=== PATIENT | male | born 1945 | race Caucasian/White ===

== ENCOUNTER 2016-09-18 09:44 | Outpatient (RCR) | payer OTHER ==
[~2016-09-18 09:44] MED LIST: FINA1TAB10 PO; FLUO20CA42 PO; TRAZ150T42 PO; [UNRECOGNIZED DRUG - CODE] PO
== END 2016-09-25 09:53 | disposition home or self-care (01) ==
PROVIDERS: ATTEND Nurse Practitioner Adult Health
DX: M54.5 Low back pain (principal)

== ENCOUNTER 2019-09-14 12:02 | Emergency (ER) | payer OTHER ==
[~2019-09-14] VITALS: Ht 165 cm; Wt 71.0 kg
[2019-09-14 12:26] LABS: BASOPHILS % (AUTO) 0 % (0-10); EOSINOPHILS # (AUTO) 0.2 10^3/uL (0.0-0.3); EOSINOPHILS % (AUTO) 4 % (0-10); HEMATOCRIT 42 % (40-54); HEMOGLOBIN 14.2 G/DL (13.3-17.7); LYMPHOCYTES # (AUTO) 1.4 X 10^3 (1.0-4.0); LYMPHOCYTES % (AUTO) 27 % (12-44); MEAN CORPUSCULAR HEMOGLOBIN 30 PG (25-34); MEAN CORPUSCULAR HGB CONC 34 G/DL (32-36); MEAN CORPUSCULAR VOLUME 89 FL (80-99); MONOCYTES # (AUTO) 0.4 X 10^3 (0.0-1.0); MONOCYTES % (AUTO) 8 % (0-12); NEUTROPHILS % (AUTO) 61 % (42-75); PLATELET COUNT 175 10^3/uL (130-400); RED CELL DISTRIBUTION WIDTH 12.8 % (10.0-14.5)
[2019-09-14 12:38] LABS: ALBUMIN 4.8 GM/DL (3.2-4.5)
--- NOTE | 2019-09-14 12:38 | ED Syncope ---
General Chief Complaint: Dizziness/Syncope Stated Complaint: DISORIENTED,FAINTING Nursing Triage Note: [facility] c/o dizziness/disorientation after going on a long bike ride without eating all day. Pt states sx have resolved since the episode, but also reports being started on Prozac 09/03 and quit taking it 2 days ago. Appears anxious and has a hx of mental health dx, but denies SI/HI. History of Present Illness Date Seen by Provider: September 14, 2019 Time Seen by Provider: 12:05 Initial Comments 74-year-old male reports over the last 2-3 months that he has been noticing his memory has been getting worse. He lives with his and son, they have not noticed any significant cognitive impairment He started Prozac on September 03 in his noticed that his symptoms have worsened and he is having difficulty sleeping, he quit taking it 2 days ago. On 09/10/19 he was very busy from morning to afternoon, then went on 5 mile bike ride at 1600, he had not eaten since 1999 t he day before. He stopped at a friends, got very week, nauseated, diaphoretic, and had to lie on the ground. It improved and he hasn't noticed similar symptoms. He has been avid bike rider for many years, noticing he can't ride as far. He goes to the [place]. Denies any significant depression, no suicidal ideations, denies hallucinations, no chest pain or SOA. No known COVID-19 exposure or risk factors. No facial drooping or weakness in extremities. No falls or head injuries. Timing/Prior Episodes: No Prior History Symptoms Prior to Episode: None Precipitating Factors: Activity, Other (not eating) Loss of Consciousness: No Loss of Consciousness Current Symptoms: Back to Normal; No Blurred Vision, No Chest Pain, No Headache, No Loss of Bladder Control, No Loss of Bowel Control, No Nausea, No Weakness Allergies and Home Medications Allergies Coded Allergies: No Known Drug Allergies (Verified Allergy, Unknown, 12/17/07) Home Medications Finasteride 1 Mg Tablet, 5 MG PO DAILY, (Reported) Fluoxetine Hcl 20 Mg Capsule, 1 EACH PO DAILY, (Reported) Patient Home Medication List Home Medication List Reviewed: Yes Review of Systems Constitutional: see HPI, dizziness, malaise, weakness EENTM: see HPI, no symptoms reported Respiratory: no symptoms reported, see HPI; No short of breath Cardiovascular: no symptoms reported, see HPI; No chest pain Gastrointestinal: no symptoms reported, see HPI; No constipation, No diarrhea, No dysphagia, No nausea, No vomiting Musculoskeletal: no symptoms reported, see HPI All Other Systems Reviewed Negative Unless Noted: Yes Past Mybxybz-Vnkrel-Pbgdfa Hx Past Med/Social Hx: Reviewed Nursing Past Med/Soc Hx Patient Social History Alcohol Use: Past History Recreational Drug Use: No Smoking Status: Never a Smoker 2nd Hand Smoke Exposure: No Recent Foreign Travel: No Contact w/Someone Who Travel: No Recent Infectious Disease Expo: No Recent Hopitalizations: No Physical Abuse: No Sexual Abuse: No Mistreated: No Fear: No Seasonal Allergies Seasonal Allergies: No Past Medical History Surgeries: No Respiratory: No Cardiac: No Neurological: No Genitourinary: No Benign Prostatic Hyperpl Gastrointestinal: No Musculoskeletal: No Back Injury, Chronic Back Pain Endocrine: No HEENT: No Cancer: No Psychosocial: Yes Anxiety Nursing Suicide Risk Notes: notes helplessness and family problems Integumentary: No Blood Disorders: No Physical Exam Vital Signs Vital Signs - First Documented 09/14/19 12:12 Temp 36.4 Pulse 61 Resp 16 B/P (MAP) 127/74 (91) Pulse Ox 98 O2 Delivery Room Air Capillary Refill : Less Than 3 Seconds Height, Weight, BMI Height: '" Weight: 153lbs. oz. 69.423294ou; 26.00 BMI Method: General Appearance: No Apparent Distress, WD/WN HEENT: PERRL/EOMI, TMs Normal, Normal ENT Inspection, Pharynx Normal Neck: Full Range of Motion, Normal Inspection, Non Tender, Supple Cardiovascular: Regular Rate, Rhythm, No Murmur, Normal Peripheral Pulses Respiratory: Chest Non Tender, Lungs Clear, Normal Breath Sounds Gastrointestinal: Normal Bowel Sounds, Non Tender, Soft Extremities: Normal Capillary Refill, Normal Inspection, Normal Range of Motion Neurologic/Psychiatric: Alert, Oriented x3, No Motor/Sensory Deficits, Normal Mood/Affect Cranial Nerves: Normal Hearing, Normal Speech, PERRL Coordination/Gait: Normal Finger to Nose, Normal Gait Motor/Sensory: No Motor Deficit, No Sensory Deficit, No Pronator Drift Skin: Normal Color, Warm/Dry; No Diaphoresis Recent and remote memory intact. Follows all requests and answers all questions appropriately. Progress/Results/Core Measures Results/Orders Lab Results Laboratory Tests Test 09/14/19 12:19 09/14/19 12:20 09/14/19 13:03 Range/Units Glucometer 102 70-110 MG/DL White Blood Count 5.0 4.3-11.0 10^3/uL Red Blood Count 4.69 4.35-5.85 10^6/uL Hemoglobin 14.2 13.3-17.7 G/DL Hematocrit 42 40-54 % Mean Corpuscular Volume 89 80-99 FL Mean Corpuscular Hemoglobin 30 25-34 PG Mean Corpuscular Hemoglobin Concent 34 32-36 G/DL Red Cell Distribution Width 12.8 10.0-14.5 % Platelet Count 175 130-400 10^3/uL Mean Platelet Volume 11.0 H 7.4-10.4 FL Neutrophils (%) (Auto) 61 42-75 % Lymphocytes (%) (Auto) 27 12-44 % Monocytes (%) (Auto) 8 0-12 % Eosinophils (%) (Auto) 4 0-10 % Basophils (%) (Auto) 0 0-10 % Neutrophils # (Auto) 3.0 1.8-7.8 X 10^3 Lymphocytes # (Auto) 1.4 1.0-4.0 X 10^3 Monocytes # (Auto) 0.4 0.0-1.0 X 10^3 Eosinophils # (Auto) 0.2 0.0-0.3 10^3/uL Basophils # (Auto) 0.0 0.0-0.1 10^3/uL Prothrombin Time 12.6 12.2-14.7 SEC INR Comment 0.9 0.8-1.4 Activated Partial Thromboplast Time 27 24-35 SEC Sodium Level 140 135-145 MMOL/L Potassium Level 4.1 3.6-5.0 MMOL/L Chloride Level 107 98-107 MMOL/L Carbon Dioxide Level 24 21-32 MMOL/L Anion Gap 9 5-14 MMOL/L Blood Urea Nitrogen 20 H 7-18 MG/DL Creatinine 1.11 0.60-1.30 MG/DL Estimat Glomerular Filtration Rate > 60 BUN/Creatinine Ratio 18 Glucose Level 107 H 70-105 MG/DL Calcium Level 10.0 8.5-10.1 MG/DL Corrected Calcium 8.5-10.1 MG/DL Magnesium Level 2.2 1.6-2.4 MG/DL Total Bilirubin 0.7 0.1-1.0 MG/DL Aspartate Amino Transf (AST/SGOT) 14 5-34 U/L Alanine Aminotransferase (ALT/SGPT) 15 0-55 U/L Alkaline Phosphatase 72 40-136 U/L Myoglobin 47.7 10.0-92.0 NG/ML Troponin I < 0.028 <0.028 NG/ML B-Type Natriuretic Peptide 42.3 <100.0 PG/ML Total Protein 7.7 6.4-8.2 GM/DL Albumin 4.8 H 3.2-4.5 GM/DL Urine Color YELLOW Urine Clarity CLEAR Urine pH 5.5 5-9 Urine Specific Clear 1.020 1.016-1.022 Urine Protein NEGATIVE NEGATIVE Urine Glucose (UA) NEGATIVE NEGATIVE Urine Ketones NEGATIVE NEGATIVE Urine Nitrite NEGATIVE NEGATIVE Urine Bilirubin NEGATIVE NEGATIVE Urine Urobilinogen 0.2 < = 1.0 MG/DL Urine Leukocyte Esterase NEGATIVE NEGATIVE Urine RBC (Auto) NEGATIVE NEGATIVE Urine RBC NONE /HPF Urine WBC NONE /HPF Urine Crystals NONE /LPF Urine Bacteria NEGATIVE /HPF Urine Casts NONE /LPF Urine Mucus NEGATIVE /LPF Urine Culture Indicated NO My Orders Orders - YUAN RODARTE Cbc With Automated Diff (09/14/19 12:04) Magnesium (09/14/19 12:04) Chest 1 View, Ap/Pa Only (09/14/19 12:04) Ekg Tracing (09/14/19 12:04) Comprehensive Metabolic Panel (09/14/19 12:04) Myoglobin Serum (09/14/19 12:04) Protime With Inr (09/14/19 12:04) Partial Thromboplastin Time (09/14/19 12:04) O2 (09/14/19 12:04) Monitor-Rhythm Ecg Trace Only (09/14/19 12:04) Ed Iv/Invasive Line Start (09/14/19 12:04) BNP (09/14/19 12:04) Ua Culture If Indicated (09/14/19 12:04) Troponin I (09/14/19 12:20) Vital Signs/I&O 09/14/19 09/14/19 09/14/19 12:12 14:04 14:06 Temp 36.4 36.4 Pulse 61 59 56 Resp 16 16 16 B/P (MAP) 127/74 (91) 120/69 (86) 128/69 Pulse Ox 98 98 100 O2 Delivery Room Air Room Air Room Air Blood Pressure Mean: 91 Progress Progress Note : Time: 12:05 Progress Note Patient seen and evaluated, will obtain labs, EKG, chest x-ray and reevaluate. 1245 lab pending, no further complaints. Is waiting on follow up from [place] and mental health appts. 1330 Labs all WNL. No complaints or requests. Discharge instructions and return precautions reviewed with the patient. Initial ECG Impression Date: September 14, 2019 Initial ECG Impression Time: 12:11 Initial ECG Rate: 66 Initial ECG Rhythm: Normal Sinus Initial ECG Intervals: Normal Initial ECG Intervals AK 163, QRSD 93, QT 393, QTc 412. Milmay P 41, QRS 6, T 42 Initial ECG Impression: Normal Initial ECG Comparisson: No Previous ECG Available Diagnostic Imaging Diagonstic Imaging: Xray Plain Films/CT/US/NM/MRI: chest Comments NAME: ADALBERTO ALAS [facility] REC#: [id number] PT STATUS: REG ER : 1945 PHYSICIAN: YUAN RODARTE ADMIT DATE: 09/14/19/ER Draft Date of Exam:09/14/19 CHEST 1 VIEW, AP/PA ONLY INDICATION: Chest pain. COMPARISON: None. FINDINGS: A single frontal view of the chest demonstrates normal heart size and pulmonary vascularity. The lungs are well aerated and clear. No large pleural effusion or pneumothorax is seen. The visualized osseous structures show no acute abnormalities. IMPRESSION: No acute cardiopulmonary process. Dictated on workstation # [id number] Dict: 09/14/19 1252 Trans: 09/14/19 1254 [id number] Interpreted by: JUDY HEMPHILL MD Electronically signed by: Reviewed: Reviewed by Me Departure Impression Primary Impression: Syncopal episodes Qualified Codes: R55 - Syncope and collapse Disposition: 01 HOME, SELF-CARE Condition: Improved Departure-Patient Inst. Decision time for Depature: 13:30 Referrals: ANDRAE HAYES MD (PCP) Primary Care Physician Patient Instructions: Syncope (Fainting) (DC) Add. Discharge Instructions: Eat and drink at regular intervals (every 3-4 hours), do not skip meals. Take Ensure or other calorie shake, if you are not eating. Make sure to hydrate with 16 oz of water, prior to bike riding. [facility] if you not going to take the [facility], to consider other medication and about getting mental health set up. Return to the emergency department for difficulty breathing, chest pain, falls, loss of consciousness or new urgent health care needs. All discharge instructions reviewed with patient and/or family. Voiced understa ndjori. YUAN RODARTE September 14, 2019 12:38
[2019-09-14 12:39] LABS: CHLORIDE 107 MMOL/L (98-107); INR 0.9 (0.8-1.4); POTASSIUM 4.1 MMOL/L (3.6-5.0); PROTHROMBIN TIME PATIENT 12.6 SEC (12.2-14.7); SODIUM 140 MMOL/L (135-145)
[2019-09-14 12:41] LABS: GLUCOSE 107 MG/DL (70-105); TOTAL PROTEIN 7.7 GM/DL (6.4-8.2)
[2019-09-14 12:42] LABS: CARBON DIOXIDE 24 MMOL/L (21-32)
[2019-09-14 12:43] LABS: BILIRUBIN,TOTAL 0.7 MG/DL (0.1-1.0)
[2019-09-14 12:44] LABS: ALKALINE PHOSPHATASE 72 U/L (40-136)
[2019-09-14 12:45] LABS: CREATININE SERUM 1.11 MG/DL (0.60-1.30); GFR ESTIMATED > 60
[2019-09-14 12:46] LABS: BUN/CREATININE RATIO 18
[2019-09-14] MEDS ORDERED: TMSL.4C PO (12:46)
[2019-09-14] MEDS ORDERED: MELO15TA39 PO (12:46)
[2019-09-14 12:48] LABS: ALANINE AMINOTRANSFERASE 15 U/L (0-55); MAGNESIUM 2.2 MG/DL (1.6-2.4)
--- NOTE | 2019-09-14 12:55 | Diagnostic Imaging Report ---
INDICATION: Chest pain. COMPARISON: None. FINDINGS: A single frontal view of the chest demonstrates normal heart size and pulmonary vascularity. The lungs are well aerated and clear. No large pleural effusion or pneumothorax is seen. The visualized osseous structures show no acute abnormalities. IMPRESSION: No acute cardiopulmonary process. Dictated by: Dictated on workstation # [id number]
[2019-09-14 13:16] LABS: BILIRUBIN,URINE NEGATIVE (NEGATIVE); CLARITY,URINE CLEAR; COLOR,URINE YELLOW; GLUCOSE, URINE (UA) NEGATIVE (NEGATIVE); KETONES,URINE NEGATIVE (NEGATIVE); LEUKOCYTE ESTERASE ,URINE NEGATIVE (NEGATIVE); NITRITE,URINE NEGATIVE (NEGATIVE); PH,URINE 5.5 (5-9); PROTEIN,URINE NEGATIVE (NEGATIVE)
--- OUTSIDE RECORDS SUMMARY | 2019-09-14 13:23 | XMS REPORT | Encounter Summary ---
Author Author [facility] [place] Organization [facility] [place], [facility] Address Unknown Phone Unavailable Care Team Providers Care Sill Worker Name Role Phone Conversion, History PCP Unavailable Encounter Details Care Team Description Date Type Department Jj Landrum, DO [address] [facility] [place] [id number] Ed, Physician Heat Exhaustion, Unspecified (Primary Dx ) 12/01/2005 Emergency [facility] [address] [place] [address] [place] [id number] Social History Date Tobacco Use Types Packs/Day Years Used Never Assessed Sex Assigned at Date Recorded Not on file Industry Job Start Date Occupation Not on file Not on file Not on file Travel End Travel History Travel Start No recent travel history available. documented as of this encounter Plan of Treatment Not on filedocumented as of this encounter Visit Diagnoses Diagnosis Heat exhaustion, unspecified - Primary documented in this encounter
--- OUTSIDE RECORDS SUMMARY | 2019-09-14 13:23 | XMS REPORT | Encounter Summary ---
[facility] Organization [facility] Address Unknown Phone Unavailable Care Team Providers Care Cafe Operator Name Role Phone Conversion, History PCP Unavailable Encounter Details Care Team Description Date Type Department 03/12/1990 Inpatient Historical Social History Date Tobacco Use Types Packs/Day Years Used Never Assessed Sex Assigned at Date Recorded Not on file Industry Job Start Date Occupation Not on file Not on file Not on file Travel End Travel History Travel Start No recent travel history available. documented as of this encounter Plan of Treatment Not on filedocumented as of this encounter Visit Diagnoses Not on filedocumented in this encounter
--- OUTSIDE RECORDS SUMMARY | 2019-09-14 13:23 | XMS REPORT | Clinical Summary ---
Author Author [facility] Organization [facility] Address Unknown Phone Unavailable Care Team Providers Care Structural Iron Erector Name Role Phone PCP Unavailable Allergies Comments Active Allergy Reactions Severity Noted Date Muscle aches Gzuwnxu-Ldz-Viw Reductase Other (See 12/17/2016 Inhibitors Comments) Medications End Date Status Medication Sig Dispensed Refills Start Date Active cyclobenzaprine Take 10 mg by 0 (FLEXERIL) 10 mg tablet mouth nightly as needed for Spasm. Active doxepin (SINEquan) 10 mg Take 10 mg by 0 capsule mouth daily at bedtime. Active finasteride (PROSCAR) 5 Take 5 mg by 0 mg tablet mouth. Active FLUoxetine (PROzac) 20 mg Take 20 mg by 0 capsule mouth 3 times daily. Active LORazepam (ATIVAN) 0.5 mg Take 0.25 mg 0 tablet by mouth daily . Active tamsulosin (FLOMAX) 0.4 Take 0.4 mg 0 mg capsule by mouth 2 times daily. Active salmon oil/omega-3 fatty Take 1,000 mg 0 acids (SALMON OIL-1000 by mouth ORAL) daily. Active Problems No known active problems Social History Date Tobacco Use Types Packs/Day Years Used Never Smoker Smokeless Tobacco: Never Used Drinks/Week oz/Week Comments Alcohol Use No Sex Assigned at Date Recorded Not on file Industry Job Start Date Occupation Not on file Not on file Not on file Travel End Travel History Travel Start No recent travel history available. Last Filed Vital Signs Reading Time Taken Comments Vital Sign 126/62 02/25/2018 10:37 AM CDT Blood Pressure 78 02/25/2018 10:37 AM CDT Pulse - - Temperature 18 12/16/2017 3:42 PM CDT Respiratory Rate 99% 02/25/2018 10:37 AM CDT Oxygen Saturation - - Inhaled Oxygen Concentration 70.6 kg (155 lb 9.6 oz) 02/25/2018 10:37 AM CDT Weight 163.8 cm (5' 4.5") 02/25/2018 10:37 AM CDT Height 26.3 02/25/2018 10:37 AM CDT Body Mass Index Plan of Treatment Health Maintenance Due Date Last Done Comments COLORECTAL SCREENING 1995 ZOSTER VACCINE (1 of 2) 1995 PNEUMOCOCCAL VACCINE 65+ 2010 YEARS (1 of 2 - PCV13) INFLUENZA VACCINE 11/27/2018 Results Not on filefrom Last 3 Months Insurance Type Payer Benefit Subscriber ID Effective Phone Address Plan / Dates Group Government Insurance [employer] [facility] [id number] [address] [employer] 04/29/1879 [address] [facility] (Home) [place] [address] Advance Directives For more information, please contact: [phone] Patient Scrap Piler Explanation Type Date Recorded Advance Directive POA Advance Directive Living Will
--- OUTSIDE RECORDS SUMMARY | 2019-09-14 13:23 | XMS REPORT | Encounter Summary ---
Author Author [facility] Organization [facility] Address Unknown Phone Unavailable Care Team Providers Care Qa Intern Name Role Phone PCP Unavailable Reason for Visit * Reason Comments Follow Up Encounter Details Care Team Description Date Type Department Miguel Angel Heard MD NO ADDRESS ON FILE Type 2 diabetes mellitus with complicati on, without long-term current use of insulin (Primary Dx); Benign hypertension; Mixed hyperlipidemia 12/16/2017 Office Visit [facility] [address] [place] [address] Social History Date Tobacco Use Types Packs/Day Years Used Never Smoker Smokeless Tobacco: Never Used Drinks/Week oz/Week Comments Alcohol Use No Sex Assigned at Date Recorded Not on file Industry Job Start Date Occupation Not on file Not on file Not on file Travel End Travel History Travel Start No recent travel history available. documented as of this encounter Last Filed Vital Signs Reading Time Taken Comments Vital Sign 125/75 12/16/2017 3:42 PM CDT Blood Pressure 77 12/16/2017 3:42 PM CDT Pulse - - Temperature 18 12/16/2017 3:42 PM CDT Respiratory Rate 95% 12/16/2017 3:42 PM CDT Oxygen Saturation - - Inhaled Oxygen Concentration 69.1 kg (152 lb 6.4 oz) 12/16/2017 3:42 PM CDT Weight 164.5 cm (5' 4.75") 12/16/2017 3:42 PM CDT Height 25.56 12/16/2017 3:42 PM CDT Body Mass Index documented in this encounter Progress Notes * Miguel Angel Heard MD - 12/16/2017 4:14 PM CDT HISTORY OF PRESENT ILLNESS Glenn Jaramillo, a 72 y.o. male. Chief Complaint Patient presents with Follow Up Subjective The history is provided by the patient. The medical record reflects the History of Present Illness as obtained by myself in discussion with the patient. No past medical history on file. Current Outpatient Prescriptions: salmon oil/omega-3 fatty acids (SALMON OIL-1000 ORAL), Take 1,000 mg by selin th daily., Disp: , Rfl: artificial tears,hypromellose, 0.5 % solution, INSTILL 1 DROP IN BOTH EYES FOUR TIMES A DAY NEEDED FOR DRY EYES., Disp: , Rfl: cyclobenzaprine (FLEXERIL) 10 mg tablet, Take 10 mg by mouth nightly as nee ded for Spasm., Disp: , Rfl: doxepin (SINEquan) 10 mg capsule, Take 10 mg by mouth daily at bedtime., Di sp: , Rfl: finasteride (PROSCAR) 5 mg tablet, Take 5 mg by mouth., Disp: , Rfl: FLUoxetine (PROzac) 20 mg capsule, Take 20 mg by mouth 3 times daily., Disp : , Rfl: LORazepam (ATIVAN) 0.5 mg tablet, Take 0.25 mg by mouth daily . , Disp: , R fl: tamsulosin (FLOMAX) 0.4 mg capsule, Take 0.4 mg by mouth 2 times daily., Di sp: , Rfl: REVIEW OF SYSTEMS Review of Systems Constitutional: Negative. HENT: Negative. Eyes: Negative. Respiratory: Negative. Cardiovascular: Negative. Gastrointestinal: Negative. Endocrine: Negative. Genitourinary: Negative. Musculoskeletal: Negative. Skin: Negative. Allergic/Immunologic: Negative. Neurological: Negative. Hematological: Negative. Psychiatric/Behavioral: Negative. Objective PHYSICAL EXAM BP 125/75 | Pulse 77 | Resp 18 | Ht 5' 4.75" (1.645 m) | Wt 69.1 kg (152 lb 6.4 oz) | SpO2 95% | BMI 25.56 kg/m Physical Exam Constitutional: He is oriented to person, place, and time. He appears well-devel oped and well-nourished. HENT: Head: Normocephalic. Eyes: Pupils are equal, round, and reactive to light. EOM are normal. Neck: Normal range of motion. Neck supple. Cardiovascular: Normal rate and regular rhythm. Pulmonary/Chest: Effort normal and breath sounds normal. Abdominal: Soft. Bowel sounds are normal. Musculoskeletal: Normal range of motion. Neurological: He is alert and oriented to person, place, and time. Skin: Skin is warm and dry. No results found for: WBC, HGB, HGBPOC, HCT, HCTPOC, PLT, MCV, ESR, ESRPOC, CHOL TOT, HDL, LDLCALC, LDLDIRECT, TRIGLYCERIDE, ALT, AST, NA, K, KPOC, CL, CO2, CREA T, BUN, GFR, TSH, TSHULTRA, THYROIDSTIM, PSA, INR, GLUCOSEF, GLUCOSE, HGBA1C, SD CROALBUMIN, MALBUR, [id number] Assessment ASSESSMENT and PLAN: Encounter Diagnoses Name Primary? Type 2 diabetes mellitus with complication, without long-term current use of insulin Yes Benign hypertension Mixed hyperlipidemia No orders of the defined types were placed in this encounter. DISCUSSION: 72-year-old gentleman with a recent history of severe diarrhea and vomiting. Th is happened until 2 days ago when it suddenly stopped. This probably represente d an acute viral gastroenteritis. He has no symptoms at the present time is eat ing without difficulty since then. Examination reveals normal bowel sounds no t enderness on palpation. He will continue to eat his diabetic diet. He is good compliance. Data Unavailable He voiced understanding and agreement with the treatment plan. He understands t he importance of taking his medications and keeping all follow-up appointments. All questions were answered. Vzzom-Vuwvp-Vftcffo will be provided to patient u prosper check-out. documented in this encounter Plan of Treatment Not on filedocumented as of this encounter Visit Diagnoses Diagnosis Type 2 diabetes mellitus with complicat ion, without long-term current use of insulin - Primary Benign hypertension Essential hypertension, benign Mixed hyperlipidemia documented in this encounter
--- OUTSIDE RECORDS SUMMARY | 2019-09-14 13:23 | XMS REPORT | Encounter Summary ---
Author Author [facility] Organization [facility] Address Unknown Phone Unavailable Care Team Providers Care Cobbler Apprentice Name Role Phone Conversion, History PCP Unavailable Reason for Visit * Reason Comments Hand Pain hands and fingers.x 6 month s and worse the last 3 months which makes it harder to sleep due to the poain Arm swelling Pt states he has noticed th at his left side of his body has been swelling off and on. Hand Pain The more he uses his hands during the day the more he has problems he has trying to sleep. Encounter Details Care Team Description Date Type Department Miguel Angel Heard MD NO ADDRESS ON FILE Refused influenza vaccine (Primary Dx); Benign hypertension; Joint pain in fingers of right hand 02/16/2019 Office Visit [facility] [address] [place] [address] Social History Date Tobacco Use Types Packs/Day Years Used Former Smoker Cigarettes 1 20 Smokeless Tobacco: Never Used Tobacco Cessation: Counseling Given: No Drinks/Week oz/Week Comments Alcohol Use Not Currently Sex Assigned at Date Recorded Not on file Industry Job Start Date Occupation Not on file Not on file Not on file Travel End Travel History Travel Start No recent travel history available. documented as of this encounter Last Filed Vital Signs Reading Time Taken Comments Vital Sign 139/84 02/16/2019 2:46 PM CDT Blood Pressure 62 02/16/2019 2:46 PM CDT Pulse - - Temperature - - Respiratory Rate 100% 02/16/2019 2:46 PM CDT Oxygen Saturation - - Inhaled Oxygen Concentration 69.1 kg (152 lb 6.4 oz) 02/16/2019 2:46 PM CDT Weight 163.8 cm (5' 4.5") 02/16/2019 2:46 PM CDT Height 25.76 02/16/2019 2:46 PM CDT Body Mass Index documented in this encounter Progress Notes * Miguel Angel Heard MD - 02/17/2019 4:40 PM CDT Fall Risk ASSESSMENT HISTORY OF PRESENT ILLNESS Glenn Jaramillo, a 73 y.o. male. Chief Complaint Patient presents with Hand Pain hands and fingers.x 6 months and worse the last 3 months which makes it harder to sleep due to the poain Arm swelling Pt states he has noticed that his left side of his body has been swelling off and on. Hand Pain The more he uses his hands during the day the more he has problems he has tryi ng to sleep. Subjective The medical record reflects the History of Present Illness as obtained by myself in discussion with the patient. Hand Pain Location: Hand Pain details: Quality: Cramping Arm swelling Past Medical History: Diagnosis Date Carpal tunnel syndrome, bilateral Current Outpatient Medications: finasteride (PROSCAR) 5 mg tablet, Take 5 mg by mouth daily., Disp: , Rfl: tamsulosin (FLOMAX) 0.4 mg capsule, Take 0.4 mg by mouth 2 times daily., Di sp: , Rfl: meloxicam (MOBIC) 15 mg tablet, Take 15 mg by mouth daily., Disp: , Rfl: REVIEW OF SYSTEMS Review of Systems Constitutional: Negative. HENT: Negative. Eyes: Negative for pain and redness. Respiratory: Negative. Cardiovascular: Negative. Gastrointestinal: Negative for heartburn and nausea. Genitourinary: Negative. Musculoskeletal: Positive for joint pain and myalgias. Skin: Negative for itching. Neurological: Negative for sensory change, focal weakness and weakness. Psychiatric/Behavioral: Negative for depression, substance abuse and suicidal id eas. The patient does not have insomnia. Objective PHYSICAL EXAM BP 139/84 | Pulse 62 | Ht 5' 4.5" (1.638 m) | Wt 69.1 kg (152 lb 6.4 oz) | S pO2 100% | BMI 25.76 kg/m Physical Exam Constitutional: He is well-developed, well-nourished, and in no distress. HENT: Head: Normocephalic. Eyes: Pupils are equal, round, and reactive to light. Pulmonary/Chest: Effort normal. Musculoskeletal: General: Tenderness and deformity present. Procedures No results found for: WBC, HGB, HGBPOC, HCT, HCTPOC, PLT, MCV, ESR, ESRPOC, CHOL TOT, HDL, LDLCALC, LDLDIRECT, TRIGLYCERIDE, ALT, AST, NA, K, KPOC, CL, CO2, CREA T, BUN, GFR, TSH, TSHULTRA, THYROIDSTIM, PSA, INR, GLUCOSEF, GLUCOSE, HGBA1C, IL CROALBUMIN, MALBUR, [id number] Assessment ASSESSMENT and PLAN: Encounter Diagnoses Name Primary? Refused influenza vaccine Yes Benign hypertension Joint pain in fingers of right hand Orders Placed This Encounter finasteride (PROSCAR) 5 mg tablet tamsulosin (FLOMAX) 0.4 mg capsule meloxicam (MOBIC) 15 mg tablet DISCUSSION: Pain of both hands with subluxation of both index fingers, offered to send him t o hand surgeon, but refuses, asked him to try warmth and NSAIDS, he uses his lindo d a great deal. Data Unavailable He voiced understanding and agreement with the treatment plan. He understands t he importance of taking his medications and keeping all follow-up appointments. All questions were answered. [id number]-Icizhrs will be provided to patient u prosper check-out. He has had no falls in the past year. documented in this encounter Plan of Treatment Not on filedocumented as of this encounter Visit Diagnoses Diagnosis Refused influenza vaccine - Primary Vaccination not carried out because of patient refusal Benign hypertension Essential hypertension, benign Joint pain in fingers of right hand documented in this encounter
--- OUTSIDE RECORDS SUMMARY | 2019-09-14 13:23 | XMS REPORT | Encounter Summary ---
Author Author [facility] Organization [facility] Address Unknown Phone Unavailable Care Team Providers Care Early Childhood Education Instructor Name Role Phone Conversion, History PCP Unavailable Encounter Details Care Team Description Date Type Department Angel Gauthier MD [address] [place] [address] Carpal tunnel syndrome (Primary Dx) 07/26/1998 Inpatient [facility] Out[facility] [place] [address] [facility] [place] [phone] Social History Date Tobacco Use Types Packs/Day Years Used Never Assessed Sex Assigned at Date Recorded Not on file Industry Job Start Date Occupation Not on file Not on file Not on file Travel End Travel History Travel Start No recent travel history available. documented as of this encounter Plan of Treatment Not on filedocumented as of this encounter Visit Diagnoses Diagnosis Carpal tunnel syndrome - Primary documented in this encounter
--- OUTSIDE RECORDS SUMMARY | 2019-09-14 13:23 | XMS REPORT ---
Author Author [employer] [email or web address] Address [address] [place] [id number] Care Team Providers Care Relations Manager Name Role Phone NO, LOCAL PHYSICIAN Unavailable Unavailable YVONNE SUAREZ Unavailable Unavailable STEFANY WESTBROOK Unavailable Unavailable Migration, Doctor Unavailable Unavailable MARCI COONEY DO Unavailable Unavailable Migration, Doctor Unavailable Unavailable PATRICE MEDINA Unavailable Unavailable Unavailable Unavailable Unavailable Unavailable Unavailable Unavailable Allergies Normalized Allergy Reported Date of Reaction(s) Care Provider Facility Allergy Type classification allergen Allergy Onset DA (13 Unclassified No Known Drug 12-17-2007 - no information MARCI COONEY DO Not Available sources.) Allergies (79074) Medications The data below is from unstructured sourcesNo Known Medications Unknown Medications No Known Medications Unknown Medications Problems Active Problems Problem Normalized Date Last Normalized Normalized Provider Fa cility Classification Problem(s) Recorded Problem Problem Sta tus Duration Anxiety Anxiety state, Chronic Active MARCI COONEY DO No t Available disorders (4 unspecified (14433) sources.) Past or Other Problems Problem Normalized Date Last Normalized Normalized Provider Fa cility Classification Problem(s) Recorded Problem Problem Sta tus Duration Spondylosis; Low back pain Episodic Completed STEFANY WESTBROOK Not Available intervertebral (18525) disc disorders; other back problems (11 sources.) Procedures The data below is from unstructured sources No Known procedures No Known procedures No Known procedures Immunizations The data below is from unstructured sources No Known Immunizations No Known Immunizations No Known Immunizations Results Test Name Value Interpretation Reference Range Date Time Fa cility (Normalized) (Normalized) (Medline Reference) laboratory on 2019-09-14 Albumin 4.8 g/dL (H) 3.4 - 5.4 g/dL 09-14-2019 PENDING LOCATION [Mass/Vol] 08:20-0400 [facility] (40169) ALP [Catalytic 72 U/L (NEG) 44 - 147 U/L 09-14-2019 PEND ING LOCATION activity/Vol] 08:20-0400 [facility] ([id number]) ALT [Catalytic 15 U/L (NEG) 4 - 40 U/L 09-14-2019 PENDIN G LOCATION activity/Vol] 08:-0 [facility] () Anion gap 9 mmol/L (NEG) 3 - 11 mmol/L 09-14-2019 PENDING LOCATION [Moles/Vol] 08: [facility] () aPTT Coag (PPP) 27 s (NEG) 25 - 35 s 09-14-2019 PENDIN G LOCATION [Time] 08: [facility] () AST [Catalytic 14 U/L (NEG) 10 - 34 U/L 09-14-2019 PENDI NG LOCATION activity/Vol] 08: [facility] () Basophils (Bld) 0.0 10*3/uL (NEG) 0 - 0.3 10*3/uL 09-14-2019 PENDING LOCATION [#/Vol] 08:0 [facility] () Basophils/100 0 % (NEG) 0.5 - 1 % 09-14-2019 PENDING LOCATION WBC (Bld) 08:0 [facility] (36675) Bilirubin 0.7 mg/dL (NEG) 0.1 - 1.2 mg/dL 09-14-2019 PENDIN G LOCATION [Mass/Vol] 08:0400 [facility] ([id number]) Calcium 10.0 mg/dL (NEG) 8.5 - 10.2 mg/dL 09-14-2019 PEND ING LOCATION [Mass/Vol] 08:0 [facility] (52550) Chloride 107 mmol/L (NEG) 95 - 106 mmol/L 09-14-2019 PENDI NG LOCATION [Moles/Vol] 08:-0400 [facility] (42283) CO2 [Moles/Vol] 24 mmol/L (NEG) 23 - 29 mmol/L 09-14-2019 P ENDING LOCATION 08:0400 [facility] (57301) Creatinine 1.11 mg/dL (NEG) 09-14-2019 PENDING LOCATI ON [Mass/Vol] 08:0 [facility] (32380) Creatinine and > (no code) 09-14-2019 PENDING LOC ATION Glomerular 08:20-0400 [facility] (30139) filtration rate.predicted panel - Serum, Plasma or Blood Eosinophils 0.2 10*3/uL (NEG) 0.05 - 0.5 09-14-2019 PENDING LOCATION (Bld) [#/Vol] 10*3/uL 08:20-0400 [facility] (18855) Eosinophils/100 4 % (NEG) 1 - 4 % 09-14-2019 [facility] LOCATION WBC (Bld) 08:20-0400 [facility] (19211) Erythrocyte 12.8 % (NEG) 11.6 - 14.6 % 09-14-2019 [facility] LOCATION distribution 08:20-0400 [facility] (44464) width (RBC) [Ratio] Glucose 102 mg/dL (NEG) 60 - 125 mg/dL 09-14-2019 PENDING LOCATION [Mass/Vol] 08:19-0400 [facility] ([id number]) Glucose 107 mg/dL (H) 60 - 125 mg/dL 09-14-2019 PENDING LOCATION [Mass/Vol] 08:20-0400 [facility] (70014) Hematocrit (Bld) 42 % (NEG) 36.1 - 50.3 % 09-14-2019 P ENDING LOCATION [Volume 08:-0400 [facility] (32272) fraction] Hemoglobin (Bld) 14.2 g/dL (NEG) 12.1 - 17.2 g/dL 09-14-2019 PENDING LOCATION [Mass/Vol] 08:20-0400 [facility] (71738) INR Coag 0.9 (NEG) 09-14-2019 PENDING LOCATI ON (Platelet poor 08:20-0400 [facility] (03331) plasma or blood) [Relative time] Lymphocytes 1.4 10*3/uL (NEG) 0.9 - 2.9 09-14-2019 PENDING LOCATION (Bld) [#/Vol] 10*3/uL 08:20-0400 [facility] ([id number]) Lymphocytes/100 27 % (NEG) 20 - 40 % 09-14-2019 [facility] LOCATION WBC (Bld) 08:20-0400 [facility] (99526) Magnesium 2.2 mg/dL (NEG) 1.7 - 2.2 mg/dL 09-14-2019 [facility] LOCATION [Mass/Vol] 08:20-0400 [facility] ([id number]) MCH (RBC) 30 pg (NEG) 27 - 31 pg 09-14-2019 PENDING LOC ATION [Entitic mass] 08:20-0400 [facility] (64194) MCHC (RBC) 34 g/dL (NEG) 32 - 36 g/dL 09-14-2019 PENDING LOCATION [Mass/Vol] 08:20-0400 [facility] ([id number]) MCV (RBC) 89 (NEG) 09-14-2019 PENDING LOCATI ON [Entitic vol] 08:20-0400 [facility] ([id number]) Monocytes (Bld) 0.4 10*3/uL (NEG) 0.3 - 0.9 09-14-2019 PEND ING LOCATION [#/Vol] 10*3/uL 08:20-0400 [facility] ([id number]) Monocytes/100 8 % (NEG) 2 - 8 % 09-14-2019 PENDING LOCATION WBC (Bld) 08:20-0400 [facility] (33772) Myoglobin 47.7 ng/mL (NEG) 09-14-2019 PENDING LOCATI ON [Mass/Vol] 08:20-0400 [facility] ([id number]) Natriuretic 42.3 pg/mL (no code) 0 - 100 pg/mL 09-14-2019 PENDI NG LOCATION peptide B (Bld) 08:20-0400 [facility] ([id number]) [Mass/Vol] Neutrophils 3.0 10*3/uL (NEG) 1.7 - 7 10*3/uL 09-14-2019 [facility] LOCATION (Bld) [#/Vol] 08:20-0400 [facility] ([id number]) Neutrophils/100 61 % (NEG) 40 - 60 % 09-14-2019 PENDIN G LOCATION WBC (Bld) 08:20-0400 [facility] (62361) Platelet mean 11.0 (H) 09-14-2019 PENDING LOCA TION volume (Bld) 08:20-0400 [facility] (21788) [Entitic vol] Platelets (Bld) 175 10*3/uL (NEG) 150 - 450 09-14-2019 PEND ING LOCATION [#/Vol] 10*3/uL 08:20-0400 [facility] ([id number]) Potassium 4.1 mmol/L (NEG) 3.7 - 5.2 mmol/L 09-14-2019 PEND ING LOCATION [Moles/Vol] 08:20-0400 [facility] ([id number]) Protein 7.7 g/dL (NEG) 6.4 - 8.3 g/dL 09-14-2019 PENDING LOCATION [Mass/Vol] 08:20-0400 [facility] (31481) PT Coag (PPP) 12.6 s (NEG) 9.4 - 12.5 s 09-14-2019 PENDI NG LOCATION [Time] 08:200400 [facility] (95176) RBC (Bld) 4.69 10*6/uL (NEG) 4.2 - 6.1 09-14-2019 PENDING L OCATION [#/Vol] 10*6/uL 08:20-0400 [facility] (89055) Sodium 140 mmol/L (NEG) 135 - 145 mmol/L 09-14-2019 PEND ING LOCATION [Moles/Vol] 08:20-0400 [facility] (07743) Urea nitrogen 20 mg/dL (H) 7 - 20 mg/dL 09-14-2019 PENDI NG LOCATION [Mass/Vol] 08:20-0400 [facility] ([id number]) Urea 18 mg/mg (no code) 6 - 22 mg/mg 09-14-2019 PENDING L OCATION nitrogen/Creatin 08:20-0400 [facility] (64709) ine [Mass ratio] WBC (Bld) 5.0 10*3/uL (NEG) 3.5 - 10.5 09-14-2019 PENDING L OCATION [#/Vol] 10*3/uL 08:20-0400 [facility] (33030) Vital Signs No Information Interventions No Information Plan of Treatment No Information Goals No Information Social History The data below is from unstructured sources History Response Recorde d Date/Time Hx Family Cancer N 12/16 3:15am Hx Family Cardiac Disorders Y 12/17/07 3:15am Hx Family Myocardial Infarction Y father 12/17/07 3:15am History Response Recorde d Date/Time Alcohol Use Denies Use 0 12/24/12 9:53pm Recreational Drug Use N 12/24/12 9:53pm Functional Status No Information Mental Status No Information Encounters Encounter Normalized Encounter Encounter Diagnosis Care Provi michael Organization Date Type 04-17-2019 Patient encounter no information no name no or ganization name procedure 09-18-2016 Patient encounter no information no name no or ganization name - procedure 09-25-2016 09-12-2016 Patient encounter no information no name no or ganization name procedure 08-30-2016 Patient encounter no information no name no or ganization name procedure 08-28-2016 Patient encounter no information no name no or ganization name procedure 08-20-2016 Patient encounter no information no name no or ganization name procedure 08-16-2016 Patient encounter no information no name no or ganization name procedure 08-13-2016 Patient encounter no information no name no or ganization name procedure 08-02-2016 Patient encounter no information no name no or ganization name procedure Medical Equipment No Information Payers The data below is from unstructured sources Payer Name Policy Number Subscriber Name Relationship Wps Medicare Part A Only [id number] Glenn Jaramillo 01 Self / Same As Patient Advance Directives Directive Response Recor ded Date Advance Directives N 9:53pm Health Care Power of Principal Librarian N 12/24/12 9:53pm Organ Donor Y 12/24/12 9 :53pm Summary Purpose eClinicalWorks Submission Additional Source Comments This clinical document has been generated using [employer] software that has been certified by the Office of the National Coordinator for Health Information Technology (ONC 15.99.04.3023.Diam.31.00.0.201963) and the National Committee for Transfer Agent (NCQA, as an eMeasure certified technology). FOR RECORDS PERTAINING TO PATIENTS WHO ARE OR HAVE BEEN ENROLLED IN A CHEMICAL D EPENDENCY/SUBSTANCE ABUSE PROGRAM, SOME INFORMATION MAY BE OMITTED. This clinica l summary was aggregated from multiple sources. Caution should be exercised in using it in the provision of clinical care. This summary normalizes information from multiple sources, and as a consequence, information in this document may ma terially change the coding, format and clinical context of patient data. In paulie tion, data may be omitted in some cases. CLINICAL DECISIONS SHOULD BE BASED ON T HE PRIMARY CLINICAL RECORDS. [employer] provides no warranty or guara ntee of the accuracy or completeness of information in this document.The followi ng information is based on time limited clinical information UNRECOGNIZED CONTENT PROVIDED BELOW FOR UNRECOGNIZED SECTION REASON FOR VISIT ASR-IrnJNO-Nrn
--- OUTSIDE RECORDS SUMMARY | 2019-09-14 13:23 | XMS REPORT | Encounter Summary ---
Author Author [facility] Organization [facility] [place] Address Unknown Phone Unavailable Care Team Providers Care Grain Elevator Motor Starter Name Role Phone Conversion, History PCP Unavailable Encounter Details Care Team Description Date Type Department Angel Gauthier MD [address] [place] [address] Carpal tunnel syndrome (Primary Dx) 04/19/1998 Inpatient [facility] Outpatient [place] [address] [facility] [place] [phone] Social History Date Tobacco Use Types Packs/Day [...]
--- OUTSIDE RECORDS SUMMARY | 2019-09-14 13:23 | XMS REPORT ---
Author Glenn Canchola Doctor Organization [facility] Address Unknown Phone Unavailable Care Team Providers Care Vp Public Relations Name Role Phone Migration, Doctor Unavailable Unavailable PROBLEMS Type Condition ICD9-CM Code [id number] Code Onset Dates Condition S tatus SNOMED Code Problem Unspecified hypotension 458.9 Active [id number] Problem Tension headache 307.81 Active 398 [id number] ALLERGIES No Information ENCOUNTERS Encounter Location Date Diagnosis [facility] [address] [id number] [address] [place] [phone] Oct, Dental examination V72.2 [facility] [address] [facility] [id number] [address] [place] [phone] Jul, [facility] [id number] [place] [phone] Jul, [facility] [address] [facility] [id number] [address] [place] [phone] Dec, [facility] [address] [id number] [place] [phone] Mar, IMMUNIZATIONS No Known Immunizations SOCIAL HISTORY Never Assessed REASON FOR VISIT [facility] PLAN OF CARE VITAL SIGNS MEDICATIONS Medication Instructions Dosage Frequency Start Date End Date Duration S tatus trazodone 100 mg take 2 tablets (200 mg) by oral route once daily at bedtime Dec, Active terazosin 5 mg take 1 capsule (5 mg) by oral route onc e daily at bedtime Dec, Active Lorazepam 0.5 mg 0.5 Tablet 3 times per day Dec, Active Fluoxetine 20 mg take 3 capsules (60 mg) by oral route once daily in the morning Dec, Active Finasteride 5 mg take 1 tablet (5 mg) by oral route once d aily Dec, Active RESULTS No Results PROCEDURES No Known procedures INSTRUCTIONS MEDICATIONS ADMINISTERED No Known Medications
--- OUTSIDE RECORDS SUMMARY | 2019-09-14 13:23 | XMS REPORT | Encounter Summary ---
Author Author [facility] Organization [facility] Address Unknown Phone Unavailable Care Team Providers Care Beeswax Bleacher Name Role Phone PCP Unavailable Reason for Visit * Reason Comments Sleep Problem For years Will be tired an d when he lays down his mind won't shut down. Back Pain Chronic back pain Leg Pain Siatica pain down left leg Unable to walk very far Establish Care Dizziness to get up in a luu he has to get his bearing first or he gets dizzy and sometimes falls Fatigue No energy Encounter Details Care Team Description Date Type Department Miguel Angel Heard MD NO ADDRESS ON FILE Acute bilateral low back pain with sciat ica, sciatica laterality unspecified (Primary Dx) 12/17/2016 Office Visit Via [facility] [address] [place] [id number] Social History Date Tobacco Use Types Packs/Day Years Used Never Assessed Sex Assigned at Date Recorded Not on file Industry Job Start Date Occupation Not on file Not on file Not on file Travel End Travel History Travel Start No recent travel history available. documented as of this encounter Last Filed Vital Signs Reading Time Taken Comments Vital Sign 140/80 12/17/2016 10:44 AM CDT Blood Pressure 67 12/17/2016 10:44 AM CDT Pulse - - Temperature - - Respiratory Rate 98% 12/17/2016 10:44 AM CDT Oxygen Saturation - - Inhaled Oxygen Concentration 69.6 kg (153 lb 8 oz) 12/17/2016 10:44 AM CDT Weight 161.3 cm (5' 3.5") 12/17/2016 10:44 AM CDT Height 26.76 12/17/2016 10:44 AM CDT Body Mass Index documented in this encounter Progress Notes * Miguel Angel Heard MD - 12/17/2016 11:29 AM CDT HISTORY OF PRESENT ILLNESS Glenn Jaramillo, a 71 y.o. male. Chief Complaint Patient presents with Sleep Problem For years Will be tired and when he lays down his mind won't shut down. Back Pain Chronic back pain Leg Pain Siatica pain down left leg Unable to walk very far Establish Care Dizziness to get up in a luu he has to get his bearing first or he gets dizzy and somet imes falls Fatigue No energy Subjective The history is provided by the patient. Sleep Problem This is a chronic problem. Back Pain Location: Lumbar spine Chronicity: Recurrent Associated symptoms: leg pain Leg Pain Pain details: Quality: Pressure Timing: Intermittent Progression: Waxing and waning Worsened by: Bearing weight Associated symptoms: back pain and fatigue Dizziness The primary symptoms include dizziness. Additional symptoms include leg pain. Fatigue No past medical history on file. Current Outpatient Prescriptions: doxepin (SINEquan) 10 mg capsule, Take 10 mg by mouth daily at bedtime., Di sp: , Rfl: finasteride (PROSCAR) 5 mg tablet, Take 5 mg by mouth., Disp: , Rfl: FLUoxetine (PROzac) 20 mg capsule, Take 20 mg by mouth 3 times daily., Disp : , Rfl: artificial tears,hypromellose, 0.5 % solution, Administer 1 Drop in both ey es 4 times daily as needed for Discomfort., Disp: , Rfl: LORazepam (ATIVAN) 0.5 mg tablet, Take 0.5 mg by mouth every 8 hours as nee ded for Anxiety., Disp: , Rfl: tamsulosin (FLOMAX) 0.4 mg capsule, Take 0.4 mg by mouth 2 times daily., Di sp: , Rfl: Sgwob-0-NGW-EPA-Fish Oil (FISH OIL) 1,000 mg (120 mg-180 mg) Capsule, Take 2,000 mg by mouth 2 times daily., Disp: , Rfl: cyclobenzaprine (FLEXERIL) 10 mg tablet, Take 10 mg by mouth nightly as nee ded for Spasm., Disp: , Rfl: REVIEW OF SYSTEMS Review of Systems Constitutional: Positive for fatigue. HENT: Negative. Eyes: Negative. Respiratory: Negative. Cardiovascular: Negative. Gastrointestinal: Negative. Endocrine: Negative. Genitourinary: Negative. Musculoskeletal: Positive for back pain. Skin: Negative. Allergic/Immunologic: Negative. Neurological: Positive for dizziness. Hematological: Negative. Psychiatric/Behavioral: Negative. Objective PHYSICAL EXAM BP (!) 140/80 | Pulse 67 | Ht 5' 3.5" (1.613 m) | Wt 69.6 kg (153 lb 8 oz) | SpO 2 98% | BMI 26.76 kg/m2 Physical Exam Musculoskeletal: Right L4 radiculopathy[facility] No results found for: WBC, HGB, HGBPOC, HCT, HCTPOC, PLT, MCV, ESR, ESRPOC, CHOL TOT, HDL, LDLCALC, LDLDIRECT, TRIGLYCERIDE, ALT, AST, NA, K, KPOC, CL, CO2, CREA T, BUN, GFR, TSH, TSHULTRA, THYROIDSTIM, PSA, INR, GLUCOSEF, GLUCOSE, HGBA1C, [place] CROALBUMIN, MALBUR, [id number] Assessment ASSESSMENT and PLAN: Encounter Diagnosis Name Primary? Acute bilateral low back pain with sciatica, sciatica laterality unspecified Yes Orders Placed This Encounter cyclobenzaprine (FLEXERIL) 10 mg tablet doxepin (SINEquan) 10 mg capsule finasteride (PROSCAR) 5 mg tablet FLUoxetine (PROzac) 20 mg capsule artificial tears,hypromellose, 0.5 % solution LORazepam (ATIVAN) 0.5 mg tablet tamsulosin (FLOMAX) 0.4 mg capsule Oinnq-3-SVW-EPA-Fish Oil (FISH OIL) 1,000 mg (120 mg-180 mg) Capsule DISCUSSION: Reviewed medication, [facility] [place] [facility] concerns of [facility], wishes to discuss with me. Will return kfor more discuss after being seen. Data Unavailable He voiced understanding and agreement with the treatment plan. He understands t he importance of taking his medications and keeping all follow-up appointments. All questions were answered. Ijypg-Lsugx-Ozgakag will be provided to patient u prosper check-out. documented in this encounter Plan of Treatment Not on filedocumented as of this encounter Visit Diagnoses Diagnosis Acute bilateral low back pain with scia haleigh, sciatica laterality unspecified - Primary documented in this encounter
--- OUTSIDE RECORDS SUMMARY | 2019-09-14 13:23 | XMS REPORT | Encounter Summary ---
Author Author [facility] Organization [facility] Address Unknown Phone Unavailable Care Team Providers Care Seed Pelleter Name Role Phone PCP Unavailable Reason for Referral * Outpatient Services (Routine) Referred By Contact Referred To Contact Status Reason Specialty Diagnoses / Procedures Miguel Angel Heard MD NO ADDRESS ON FILE Miguel Angel Heard MD NO ADDRESS ON FILE Closed Diagnoses Pain and swelling of right shoulder P rocedures MRI SHOULDER WO CONTRAST RIGHT Reason for Visit * Reason Comments Shoulder Pain Rt shoulder pain for severa l years and worse this year. Unable to throw anything and it catches off and on. Shoulder Pain Pt states that the Clavicle joint sticks up higher on the right than left Gas Doesn't seem to matter what he eats or drinks Pt has just been takeing OTC meds for relief Encounter Details Care Team Description Date Type Department Miguel Angel Heard MD NO ADDRESS ON FILE Pain and swelling of right shoulder (Jennifer endy Dx); Mixed hyperlipidemia 02/25/2018 Office Visit Via [facility] [address] [place] [address] Social History Date Tobacco Use [...] 10:37 AM CDT Pulse - - Temperature - - Respiratory Rate 99% 02/25/2018 10:37 AM CDT Oxygen Saturation - - Inhaled Oxygen Concentration 70.6 kg (155 lb 9.6 oz) 02/25/2018 10:37 AM CDT Weight 163.8 cm (5' 4.5") 02/25/2018 10:37 AM CDT Height 26.3 02/25/2018 10:37 AM CDT Body Mass Index documented in this encounter Progress Notes * Miguel Angel Heard MD - 02/25/2018 11:12 AM CDT HISTORY OF PRESENT ILLNESS Glenn Jaramillo, a 72 y.o. male. Chief Complaint Patient presents with Shoulder Pain Rt shoulder pain for several years and worse this year. Unable to throw anyth ing and it catches off and on. Shoulder Pain Pt states that the Clavicle joint sticks up higher on the right than left Gas Doesn't seem to matter what he eats or drinks Pt has just been takeing OTC me ds for relief Subjective The history is provided by the patient. The medical record reflects the History of Present Illness as obtained by myself in discussion with the patient. Shoulder Pain Location: Shoulder Shoulder location: R shoulder Injury: yes (hx old injury) Mechanism of injury: fall No past medical history on file. Current Outpatient Prescriptions: salmon oil/omega-3 fatty acids (SALMON OIL-1000 ORAL), Take 1,000 mg by selin th daily., Disp: , Rfl: cyclobenzaprine (FLEXERIL) 10 [...] 2 times daily., Di sp: , Rfl: artificial tears,hypromellose, 0.5 % solution, INSTILL 1 DROP IN BOTH EYES FOUR TIMES A DAY NEEDED FOR DRY EYES., Disp: , Rfl: REVIEW OF SYSTEMS Review of Systems Musculoskeletal: Positive for joint swelling. Objective PHYSICAL EXAM BP 126/62 (BP Cuff Size: Adult) | Pulse 78 | Ht 5' 4.5" (1.638 m) | Wt 70.6 k g (155 lb 9.6 oz) | SpO2 99% | BMI 26.30 kg/m Physical Exam Constitutional: He is oriented to person, place, and time. He appears well-devel oped. HENT: Head: Normocephalic. Cardiovascular: Normal rate. Musculoskeletal: He exhibits edema and tenderness. Neurological: He is alert and oriented to person, place, and time. Skin: Skin is warm and dry. No results found for: WBC, HGB, HGBPOC, HCT, HCTPOC, PLT, MCV, ESR, ESRPOC, CHOL TOT, HDL, LDLCALC, LDLDIRECT, TRIGLYCERIDE, ALT, AST, NA, K, KPOC, CL, CO2, CREA T, BUN, GFR, TSH, TSHULTRA, THYROIDSTIM, PSA, INR, GLUCOSEF, GLUCOSE, HGBA1C, [place] CROALBUMIN, MALBUR, [id number] Assessment ASSESSMENT and PLAN: Encounter Diagnoses Name Primary? Pain and swelling of right shoulder Yes Mixed hyperlipidemia Orders Placed This Encounter MRI SHOULDER WO CONTRAST RIGHT DISCUSSION: 72-year-old gentleman with a history of some years ago having apparently fallen onto his right shoulder with a class III or IV dislocation of the distal clavicu lar head. One can palpate a right versus the left and finds it on the right the head is is not in its normal position. He has decreased range of motion and has pain on abduction of the shoulder. I am going to send him over for a MRI, and subsequently probably a visit with an orthopedic surgeon. He utilizes the [facility] and we may have some difficulty getting the MRI done. Data Unavailable He voiced understanding and agreement with the treatment plan. He understands t he importance of taking his medications and keeping all follow-up appointments. All questions were answered. Deirn-Vffif-Fyujfsv will be provided to patient u prosper check-out. documented in this encounter Plan of Treatment Order Schedule Name Type Priority Associated Diag noses Ordered: 02/25/2018 MRI SHOULDER WO CONTRAST Imaging Routine Pain and swelling of RIGHT right shoulder documented as of this encounter Visit Diagnoses Diagnosis Pain and swelling of right shoulder - P rimary Mixed hyperlipidemia documented in this encounter
--- OUTSIDE RECORDS SUMMARY | 2019-09-14 13:23 | XMS REPORT | Clinical Summary ---
Author Author [facility] [place], [place], [facility] Organization [facility] [place], [facility] Address Unknown Phone Unavailable Care Team Providers Care Manager Pathology Name Role Phone Conversion, History PCP Unavailable Allergies Not on File Medications End Date Status Medication Sig Dispensed Refills Start Date Active finasteride (PROSCAR) 5 Take 5 mg by 0 mg tablet mouth daily. Active tamsulosin (FLOMAX) 0.4 Take 0.4 mg 0 mg capsule by mouth 2 times daily. Active meloxicam (MOBIC) 15 mg Take 15 mg by 0 tablet mouth daily. Active Problems No known active problems [...] 02/16/2019 2:46 PM CDT Body Mass Index Plan of Treatment Health Maintenance Due Date Last Done Comments COLORECTAL SCREENING 1995 ZOSTER VACCINE (1 of 2) 1995 PNEUMOCOCCAL VACCINE 65+ 2010 YEARS (1 of 2 - PCV13) INFLUENZA VACCINE Completed 02/16/2019 Results Not on filefrom Last 3 Months Insurance Type Payer Benefit Subscriber ID Effective Phone Address Plan / Dates Group Medicare MEDICARE MEDICARE [id number] 2000-P PART A resent HOSPITAL ONLY Government Insurance DEPT OF AFFAIRS [facility] [id number] 2018-P [id number] [facility] [address] [employer] Other [phone] [address] [facility] [address] (Home) [place] [address] Advance Directives For more information, please contact: [phone] 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
--- OUTSIDE RECORDS SUMMARY | 2019-09-14 13:23 | XMS REPORT | Encounter Summary ---
Author Author [facility] Organization [facility] [place] Address Unknown Phone Unavailable Care Team Providers Care Health Equipment Servicer Name Role Phone Conversion, History PCP Unavailable Encounter Details Care Team Description Date Type Department Angel Gauthier MD [address] [place] [address] Carpal tunnel syndrome (Primary Dx) 09/30/1998 Inpatient [facility] Outpatient [place] Historical [place] [address] [facility] [place] [id number] Social History Date Tobacco Use Types Packs/Day [...]
--- OUTSIDE RECORDS SUMMARY | 2019-09-14 13:23 | XMS REPORT ---
Author Author Glenn Khan Doctor Organization [facility] Address Unknown Phone Unavailable Care Team Providers Care Road Hogger Operator Name Role Phone Migration, Doctor Unavailable Unavailable PROBLEMS Type Condition ICD9-CM Code [id number] Code Onset Dates Condition S tatus SNOMED Code Problem Unspecified hypotension 458.9 Active [id number] Problem Tension headache 307.81 Active 398 [id number] ALLERGIES No Information ENCOUNTERS Encounter Location Date Diagnosis [facility] [address] [facility] [id number] [address] [place] [id number] Oct, Dental examination V72.2 [facility] [id number] [place] [phone] Jul, [facility] [id number] [place] [phone] Jul, [facility] [id number] [place] [phone] Dec, [facility] [address] [id number] [place] [phone] Mar, IMMUNIZATIONS No Known Immunizations SOCIAL HISTORY Never Assessed REASON FOR VISIT [facility] PLAN OF CARE VITAL SIGNS MEDICATIONS Unknown Medications RESULTS No Results PROCEDURES No Known procedures INSTRUCTIONS MEDICATIONS ADMINISTERED No Known Medications
--- OUTSIDE RECORDS SUMMARY | 2019-09-14 13:23 | XMS REPORT | Encounter Summary ---
Author Author [facility] Organization [facility] Address Unknown Phone Unavailable Care Team Providers Care Instructor Extension Work Name Role Phone PCP Unavailable Reason for Visit * Reason Comments Panic Attack Pt has been on Prozac 60mg in AM Anxiety Denies any new problems Encounter Details Care Team Description Date Type Department Miguel Angel Heard MD NO ADDRESS ON FILE Benign hypertension (Primary Dx); Type 2 diabetes mellitus with complication, without long-term current use of insulin; Mixed hyperlipidemia 12/03/2017 Office Visit [place] [address] Social History Date Tobacco Use [...] Signs Reading Time Taken Comments Vital Sign 135/76 12/03/2017 10:21 AM CDT Blood Pressure 67 12/03/2017 10:21 AM CDT Pulse - - Temperature - - Respiratory Rate 98% 12/03/2017 10:21 AM CDT Oxygen Saturation - - Inhaled Oxygen Concentration 71.4 kg (157 lb 6.4 oz) 12/03/2017 10:21 AM CDT Weight 164.5 cm (5' 4.75") 12/03/2017 10:21 AM CDT Height 26.4 12/03/2017 10:21 AM CDT Body Mass Index documented in this encounter Progress Notes * Miguel Angel Heard MD - 12/03/2017 11:03 AM CDT HISTORY OF PRESENT ILLNESS Glenn Inalis, a 72 y.o. male. Chief Complaint Patient presents with Panic Attack Pt has been on Prozac 60mg in AM Anxiety Denies any new problems Subjective The history is provided by the patient. The medical record reflects the History of Present Illness as obtained by myself in discussion with the patient. Panic Attack The primary symptoms do not include dysphoric mood. The current episode started more than 1 month ago. Anxiety Symptoms include panic. No past medical history on file. Current Outpatient Prescriptions: salmon oil/omega-3 fatty acids (SALMON OIL-1000 ORAL), Take 1,000 mg by selin th daily., Disp: , Rfl: artificial tears,hypromellose, 0.5 % solution, INSTILL 1 DROP IN BOTH EYES FOUR TIMES A DAY NEEDED FOR DRY EYES., Disp: , Rfl: doxepin (SINEquan) 10 mg [...] 2 times daily., Di sp: , Rfl: cyclobenzaprine (FLEXERIL) 10 mg tablet, Take 10 mg by mouth nightly as nee ded for Spasm., Disp: , Rfl: REVIEW OF SYSTEMS Review of Systems Constitutional: Negative. HENT: Negative. Eyes: Negative. Respiratory: Negative. Cardiovascular: Negative. Gastrointestinal: Negative. Endocrine: Negative. Genitourinary: Negative. Musculoskeletal: Negative. Skin: Negative. Allergic/Immunologic: Negative. Neurological: Negative. Hematological: Negative. Psychiatric/Behavioral: Negative. Negative for dysphoric mood. Objective PHYSICAL EXAM BP 135/76 | Pulse 67 | Ht 5' 4.75" (1.645 m) | Wt 71.4 kg (157 lb 6.4 oz) | SpO2 98% | BMI 26.40 kg/m Physical Exam Constitutional: He is oriented [...] TSHULTRA, THYROIDSTIM, PSA, INR, GLUCOSEF, GLUCOSE, HGBA1C, [place] CROALBUMIN, MALBUR, [id number] Assessment ASSESSMENT and PLAN: Encounter Diagnoses Name Primary? Benign hypertension Yes Type 2 diabetes mellitus with complication, without long-term current use of insulin Mixed hyperlipidemia Orders Placed This Encounter salmon oil/omega-3 fatty acids (SALMON OIL-1000 ORAL) DISCUSSION: Discussed medications. Data Unavailable He voiced understanding and agreement with the treatment plan. He understands t he importance of taking his medications and keeping all follow-up appointments. All questions were answered. Rzksr-Cstow-Curwcnk will be provided to patient u prosper check-out. documented in this encounter Plan of Treatment Not on filedocumented as of this encounter Visit Diagnoses Diagnosis Benign hypertension - Primary Essential hypertension, benign Type 2 diabetes mellitus with complicat ion, without long-term current use of insulin Mixed hyperlipidemia documented in this encounter
--- OUTSIDE RECORDS SUMMARY | 2019-09-14 13:23 | XMS REPORT | Encounter Summary ---
Author [facility] Organization [facility] [place] Address Unknown Phone Unavailable Care Team Providers Care Group Leader Semiconductor Testing Name Role Phone Conversion, History PCP Unavailable Encounter Details Care Team Description Date Type Department Angel Gauthier MD [address] [place] [address] 07/28/1993 Inpatient Historical Social History Date Tobacco Use [...]
--- OUTSIDE RECORDS SUMMARY | 2019-09-14 13:23 | XMS REPORT | Encounter Summary ---
Author Author [facility] Organization [facility] Address Unknown Phone Unavailable Care Team Providers Care Housing Officer Name Role Phone PCP Unavailable Reason for Visit * Reason Comments questions Results Encounter Details Care Team Description Date Type Department Miguel Angel Heard MD NO ADDRESS ON FILE Benign hypertension (Primary Dx); Mixed hyperlipidemia; Type 2 diabetes mellitus with complication, without long-term current use of insulin 08/20/2017 Office Visit Via [facility] [address] [place] [address] Social History Date Tobacco Use [...] Signs Reading Time Taken Comments Vital Sign 108/75 08/20/2017 9:46 AM CDT Blood Pressure 78 08/20/2017 9:46 AM CDT Pulse - - Temperature - - Respiratory Rate 98% 08/20/2017 9:46 AM CDT Oxygen Saturation - - Inhaled Oxygen Concentration 69.9 kg (154 lb) 08/20/2017 9:46 AM CDT Weight 162.6 cm (5' 4") 08/20/2017 9:46 AM CDT Height 26.43 08/20/2017 9:46 AM CDT Body Mass Index documented in this encounter Progress Notes * Miguel Angel Heard MD - 08/20/2017 1:14 PM CDT HISTORY OF PRESENT ILLNESS Glenn Jaramillo, a 72 y.o. male. Chief Complaint Patient presents with questions Results Subjective The history is provided by the patient. The medical record reflects the History of Present Illness as obtained by myself in discussion with the patient. Results This is a recurrent problem. The problem occurs daily. The problem has not lassiter ed since onset. No past medical history on file. Current Outpatient Prescriptions: artificial tears,hypromellose, 0.5 % solution, INSTILL 1 [...] 2 times daily., Di sp: , Rfl: Sxpcm-7-OKJ-EPA-Fish Oil (FISH OIL) 1,000 mg (120 mg-180 mg) Capsule, Take 2,000 mg by mouth 2 times daily., Disp: , Rfl: REVIEW OF SYSTEMS Review of Systems Constitutional: Positive for fatigue. HENT: Negative. Eyes: Negative. Respiratory: Negative. Cardiovascular: Negative. Gastrointestinal: Negative. Endocrine: Positive for polyuria. Genitourinary: Negative. Musculoskeletal: Positive for arthralgias. Objective PHYSICAL EXAM BP 108/75 | Pulse 78 | Ht 5' 4" (1.626 m) | Wt 69.9 kg (154 lb) | SpO2 98% | BMI 26.43 kg/m Physical Exam Constitutional: He is oriented to person, place, and time. He appears well-devel oped and well-nourished. HENT: Head: Normocephalic. Eyes: EOM are normal. Pupils are equal, round, and reactive to light. Neck: Normal range of motion. Neck supple. [...] TSHULTRA, THYROIDSTIM, PSA, INR, GLUCOSEF, GLUCOSE, HGBA1C, [place] CROALBUMIN, MALBUR, [id number] Assessment ASSESSMENT and PLAN: Encounter Diagnoses Name Primary? Benign hypertension Yes Mixed hyperlipidemia Type 2 diabetes mellitus with complication, without long-term current use of insulin Orders Placed This Encounter artificial tears,hypromellose, 0.5 % solution DISCUSSION: Pt is concerned about Prozac, he has been on the drug for some time and is worri ed about intermediate card tender use[facility],. He continues to have bouts of anxiety and is presently on Lorazepam. After discussion with patient he will use the medic ation on an as needed basis. Data Unavailable He voiced understanding and agreement with the treatment plan. He understands t he importance of taking his medications and keeping all follow-up appointments. All questions were answered. Bxogf-Uessw-Vgihtot will be provided to patient u prosper check-out. documented in this encounter Plan of Treatment Not on filedocumented as of this encounter Visit Diagnoses Diagnosis Benign hypertension - Primary Essential hypertension, benign Mixed hyperlipidemia Type 2 diabetes mellitus with complicat ion, without long-term current use of insulin documented in this encounter
--- OUTSIDE RECORDS SUMMARY | 2019-09-14 13:24 | XMS REPORT | Continuity of Care Document ---
Author Author [facility] Organization [facility] Address Unknown Phone Unavailable Care Team Providers Care Bridge Carpenter Name Role Phone NO, LOCAL PHYSICIAN PP Unavailable Insurance Providers Payer Name Policy Number Subscriber Name Relationship Wps Medicare Part A Only [id number] Glenn Jaramillo 01 Self / Same As Patient Advance Directives Directive Response Recor ded Date Advance Directives N 9:53pm Health Care Power of Profile Stitching Machine Operator N 12/24/12 9:53pm Organ Donor Y 12/24/12 9 :53pm Problems No Known Problems or Medical conditions. Family History History Response Recorde d Date/Time Hx Family Cancer N 12/16 3:15am Hx Family Cardiac Disorders Y 12/17/07 3:15am Hx Family Myocardial Infarction Y father 12/17/07 3:15am Social History History Response Recorde d Date/Time Alcohol Use Denies Use 0 12/24/12 9:53pm Recreational Drug Use N 12/24/12 9:53pm Allergies, Adverse Reactions, Alerts Allergen Type Severity Reaction Last Updated No Known Drug Allergies Allergy Unknown 12/17/07 Medications Medication Dose Units Route Sig Qty Days Trazodone Hcl 100 Mg PO HS Lorazepam (Ativan Inj) 0.5 Mg PO TID Fluoxetine HCl (Prozac) 1 Each PO DAILY Finasteride 5 Mg PO DAILY Response Recorded Date/Time Status not known Unknown Results No Known Relevant Diagnostic Tests, Laboratory Data and/or Discharge Summary. Procedures Procedure Code Date LAPAROSCOP APPENDECTOMY 47.01 12/16/07 Encounters Encounter Location Date/ Time Departed Emergency Room [facility] 12/24/12 9:15pm Discharged Inpatient [facility] 12/16/07 8:51pm
--- OUTSIDE RECORDS SUMMARY | 2019-09-14 13:24 | XMS REPORT ---
Author Author Glenn SUAREZ Organization [employer] Address Unknown Phone Unavailable Care Team Providers Care Math Specialist Name Role Phone YVONNE SUAREZ CP Unavailable Allergies No Known Allergies Problems Problem Type Condition ICD-9 Code Onset Dates Condition Statu s Problem Tension headache 307.81 Active Assessment Dental examination V72.2 Active Problem Unspecified hypotension 458.9 Acti ve Medications No Known Medications Procedures Procedure Coding System Code Date INTRAORL-PERIAPICAL 1 FILM 60789 CPT-4 D0220 November 10, 2014 BITEWING - SINGLE FILM CPT-4 D0270 November 10, 2014 LTD ORAL EVALUATION - PROBLEM FOCUS CPT-4 D0140 November 10, 2014 EXTRAC ERUPTED TOOTH/EXPOSED ROOT CPT-4 D7140 November 10, 2014 Results No Known Results Summary Purpose [employer] Submission
[2019-09-14 13:35] LABS: BACTERIA,URINE NEGATIVE /HPF
[2019-09-14 14:04] VITALS: BP 120/69
[2019-09-14 14:06] VITALS: BP 128/69
== END 2019-09-14 14:16 | disposition home or self-care (01) ==
LOC: EDUNIT# 12:02 → ER 12:04
DX: R55 Syncope and collapse (principal); F41.9 Anxiety disorder, unspecified
CPT/HCPCS: 36415; 71045; 80053; 81000; 82962; 83735; 83874; 83880; 84484; 85025; 85610; 85730; 93041

== ENCOUNTER 2021-09-23 14:59 | Emergency (ER) | payer OTHER ==
[~2021-09-23] VITALS: Ht 165 cm; Wt 73.0 kg
[~2021-09-23 14:59] MED LIST changes: +MELO15TA39 PO; +TMSL.4C PO
[2021-09-23 15:14] VITALS: BP 167/92
--- NOTE | 2021-09-23 15:39 | ED General ---
General Chief Complaint: Abdominal/GI Problems Stated Complaint: UNABLE TO SLEEP/UNABLE TO EAT/STOMACH PAIN Nursing Triage Note: x 1 week, abd pain and when pt eats he gets hot. pt says he can't sleep, and has to force self to eat. Source of Information: Patient Exam Limitations: No Limitations History of Present Illness Date Seen by Provider: September 23, 2021 Time Seen by Provider: 15:25 Initial Comments Patient is a 76-year-old male with a history of prostate trouble, depression and anxiety who presents to the emergency department today with a chief complaint of 1 week of abdominal discomfort, early satiety, lack of appetite, feelings of being "hot" when he eats. He also complains of insomnia worsening anxiety and depression. He denies any significant weight loss in the last several months. He is not having black or bloody stools. No problems outside of his normal prostate trouble with urination. He has intermittent episodes of sweats and chills. He will wake up at night with the symptoms as well as throughout the day. No documented fevers. No sick contacts that he is aware of. [facility] and it sounds like [facility] gave him reass[facility]. No new medications were started. They did discontinue his temazepam for sleep as well as his cyclobenzaprine. He does take chronic pain medications for his back. He denies any thoughts of self-harm/suicidal/homicidal ideation. No auditory or visual hallucinations. All other review of systems reviewed and negative except as stated. Timing/Duration: 1 Week Severity: Moderate Associated Systoms: Loss of Appetite, Malaise, Other (anxiety; int fevers and chills) Allergies and Home Medications Allergies Coded Allergies: No Known Drug Allergies (Verified Allergy, Unknown, 12/17/07) Patient Home Medication List Home Medication List Reviewed: Yes Finasteride (Finasteride) 1 Mg Tablet, 5 MG PO DAILY, (Reported) Entered as Reported by: LUISA RAMON on 12/24/122200 Fluoxetine Hcl (Prozac) 20 Mg Capsule, 1 EACH PO DAILY, (Reported) Entered as Reported by: LUISA RAMON on 12/24/122200 Meloxicam (Meloxicam) 15 Mg Tablet, 15 MG PO, (Reported) Entered as Reported by: ALEC MCKEON on 09/14/19 1246 Tamsulosin HCl (Flomax) 0.4 Mg Cap, 0.4 MG PO, (Reported) Entered as Reported by: ALEC MCKEON on 09/14/19 3436 Review of Systems Review of Systems Constitutional: see HPI, chills, diaphoresis EENTM: no symptoms reported Respiratory: no symptoms reported Cardiovascular: no symptoms reported Gastrointestinal: abdominal pain, loss of appetite Genitourinary: other (chronic prostate issues) Musculoskeletal: no symptoms reported Skin: no symptoms reported Psychiatric/Neurological: Anxiety, Depressed, Other (insomnia) All Other Systems Reviewed Negative Unless Noted: Yes Past Caxolxq-Znkcae-Uslxmm Hx Patient Social History Tobacco Use?: No Smoking Status: Former Smoker Substance use?: No Alcohol Use?: No Immunizations Up To Date Influenza Vaccine Up-to-Date: No; Not Current Seasonal Allergies Seasonal Allergies: No Past Medical History Surgeries: No Respiratory: No Cardiac: No Neurological: No Genitourinary: No Benign Prostatic Hyperpl Gastrointestinal: No Musculoskeletal: No Back Injury, Chronic Back Pain Endocrine: No HEENT: No Cancer: No Psychosocial: Yes Anxiety Integumentary: No Blood Disorders: No Physical Exam Vital Signs Vital Signs - First Documented 09/23/21 15:14 Temp 35.6 Pulse 82 Resp 20 B/P (MAP) 167/92 (117) O2 Delivery Room Air Capillary Refill : Less Than 3 Seconds Height, Weight, BMI Height: '" Weight: 153lbs. oz. 69.972934co; 26.00 BMI Method: General Appearance: No Apparent Distress, WD/WN Eyes: Bilateral Eye Normal Inspection, Bilateral Eye PERRL, Bilateral Eye EOMI HEENT: Pharynx Normal, Moist Mucous Membranes Neck: Full Range of Motion, Normal Inspection, Non Tender, Supple Respiratory: Lungs Clear, Normal Breath Sounds, No Accessory Muscle Use, No Respiratory Distress Cardiovascular: Regular Rate, Rhythm, Normal Peripheral Pulses Gastrointestinal: Normal Bowel Sounds, Non Tender, Soft Back: Normal Inspection, Other (Small lipoma approximately T3/T4) Extremity: Normal Capillary Refill, Normal Inspection, Normal Range of Motion, Non Tender, No Calf Tenderness Neurologic/Psychiatric: Alert, Oriented x3, No Motor/Sensory Deficits, Normal Mood/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, 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 Norm as Tested Skin: Normal Color, Warm/Dry Progress/Results/Core Measures Suspected Sepsis SIRS Temperature: Pulse: 82 Respiratory Rate: 20 Laboratory Tests 09/23/21 15:34: White Blood Count 6.3 Blood Pressure 167 /92 Mean: 117 Laboratory Tests 09/23/21 15:34: Creatinine 0.86, Platelet Count 208, Total Bilirubin 0.6 Results/Orders Lab Results Laboratory Tests Test 09/23/21 15:34 Range/Units White Blood Count 6.3 4.3-11.0 10^3/uL Red Blood Count 4.18 L 4.30-5.52 10^6/uL Hemoglobin 13.4 13.3-17.7 g/dL Hematocrit 37 L 40-54 % Mean Corpuscular Volume 88 80-99 fL Mean Corpuscular Hemoglobin 32 25-34 pg Mean Corpuscular Hemoglobin Concent 37 H 32-36 g/dL Red Cell Distribution Width 12.8 10.0-14.5 % Platelet Count 208 130-400 10^3/uL Mean Platelet Volume 11.3 9.0-12.2 fL Immature Granulocyte % (Auto) 0 % Neutrophils (%) (Auto) 69 42-75 % Lymphocytes (%) (Auto) 22 12-44 % Monocytes (%) (Auto) 7 0-12 % Eosinophils (%) (Auto) 1 0-10 % Basophils (%) (Auto) 0 0-10 % Neutrophils # (Auto) 4.4 1.8-7.8 10^3/uL Lymphocytes # (Auto) 1.4 1.0-4.0 10^3/uL Monocytes # (Auto) 0.4 0.0-1.0 10^3/uL Eosinophils # (Auto) 0.1 0.0-0.3 10^3/uL Basophils # (Auto) 0.0 0.0-0.1 10^3/uL Immature Granulocyte # (Auto) 0.0 0.0-0.1 10^3/uL Sodium Level 137 135-145 MMOL/L Potassium Level 4.2 3.6-5.0 MMOL/L Chloride Level 104 98-107 MMOL/L Carbon Dioxide Level 17 L 21-32 MMOL/L Anion Gap 16 H 5-14 MMOL/L Blood Urea Nitrogen 22 H 7-18 MG/DL Creatinine 0.86 0.60-1.30 MG/DL Estimat Glomerular Filtration Rate 90 BUN/Creatinine Ratio 26 Glucose Level 122 H 70-105 MG/DL Calcium Level 10.5 H 8.5-10.1 MG/DL Corrected Calcium 8.5-10.1 MG/DL Total Bilirubin 0.6 0.1-1.0 MG/DL Aspartate Amino Transf (AST/SGOT) 26 5-34 U/L Alanine Aminotransferase (ALT/SGPT) 28 0-55 U/L Alkaline Phosphatase 63 40-136 U/L Total Protein 7.7 6.4-8.2 GM/DL Albumin 4.7 H 3.2-4.5 GM/DL TSH [place] Testing 0.44 0.35-4.94 UIU/ML My Orders Orders - RENE JONES MD Cbc With Automated Diff (09/23/21 15:34) Comprehensive Metabolic Panel (09/23/21 15:34) Thyroid Analyzer (09/23/21 15:34) Vital Signs/I&O 09/23/21 15:14 Temp 35.6 Pulse 82 Resp 20 B/P (MAP) 167/92 (117) O2 Delivery Room Air Capillary Refill : Less Than 3 Seconds Blood Pressure Mean: 117 Progress Note : Time: 17:48 Progress Note Chatted with patient again about all of his symptoms, reassurance was provided. His labs actually look very good although his CO2 is a little bit low. He does not look clinically dehydrated and his exam is otherwise benign. His thyroid function is normal his vital signs have been stable. We talked about nkph-zkw-qaefnpd remedies for insomnia and I strongly encouraged him to keep [facility] and talk to them about medic ations for his anxiety and depression. He verbalized understanding and is grateful for the care he received today. All questions are sought and answered. Departure Impression Primary Impression: Insomnia Qualified Codes: G47.00 - Insomnia, unspecified Additional Impression: Anxiety about health Disposition: HOME, SELF-CARE Condition: Stable Departure-Patient Inst. Decision time for Depature: 17:49 Referrals: NO,LOCAL PHYSICIAN (PCP/Family) Primary Care Physician Patient Instructions: Insomnia (DC) Add. Discharge Instructions: Avoid caffeine containing products after 3 or 4:00 in the afternoon. Be sure to drink lots of water to stay well-hydrated. You can try otwh-fhp-nkxrskt melatonin again and see if you can find a formulation that works with your stomach. There are chewable gummy tablets as well as pills and capsules. Unisom is another brand of medication that is used for insomnia. Cwex-aro-dubgznq Benadryl tablets 1 or 2 at night may also help you sleep a little bit better. Please keep your [facility] and talk to them about possibly restarting a medication for your anxiety and depression. If you develop a fever, worsening abdominal discomfort, vomiting or diarrhea or black or bloody stools please come back to the emergency department for reevaluation. RENE JONES MD September 23, 2021 15:39
[2021-09-23 15:57] LABS: BASOPHILS % (AUTO) 0 % (0-10); EOSINOPHILS # (AUTO) 0.1 10^3/uL (0.0-0.3); EOSINOPHILS % (AUTO) 1 % (0-10); HEMATOCRIT 37 % (40-54); HEMOGLOBIN 13.4 g/dL (13.3-17.7); LYMPHOCYTES # (AUTO) 1.4 10^3/uL (1.0-4.0); LYMPHOCYTES % (AUTO) 22 % (12-44); MEAN CORPUSCULAR HEMOGLOBIN 32 pg (25-34); MEAN CORPUSCULAR HGB CONC 37 g/dL (32-36); MEAN CORPUSCULAR VOLUME 88 fL (80-99); MEAN PLATELET VOLUME 11.3 fL (9.0-12.2); MONOCYTES # (AUTO) 0.4 10^3/uL (0.0-1.0); MONOCYTES % (AUTO) 7 % (0-12); NEUTROPHILS # (AUTO) 4.4 10^3/uL (1.8-7.8); NEUTROPHILS % (AUTO) 69 % (42-75); PLATELET COUNT 208 10^3/uL (130-400); WHITE BLOOD COUNT 6.3 10^3/uL (4.3-11.0)
[2021-09-23 16:05] LABS: ALBUMIN 4.7 GM/DL (3.2-4.5); CHLORIDE 104 MMOL/L (98-107); POTASSIUM 4.2 MMOL/L (3.6-5.0); SODIUM 137 MMOL/L (135-145)
[2021-09-23 16:06] LABS: CALCIUM 10.5 MG/DL (8.5-10.1)
[2021-09-23 16:07] LABS: GLUCOSE 122 MG/DL (70-105)
[2021-09-23 16:08] LABS: TOTAL PROTEIN 7.7 GM/DL (6.4-8.2)
[2021-09-23 16:09] LABS: BILIRUBIN,TOTAL 0.6 MG/DL (0.1-1.0); CARBON DIOXIDE 17 MMOL/L (21-32)
[2021-09-23 16:11] LABS: ALKALINE PHOSPHATASE 63 U/L (40-136); CREATININE SERUM 0.86 MG/DL (0.60-1.30); GFR ESTIMATED 90
[2021-09-23 16:12] LABS: BUN/CREATININE RATIO 26
[2021-09-23 16:14] LABS: ALANINE AMINOTRANSFERASE 28 U/L (0-55)
[2021-09-23 16:34] LABS: TSH (THYROID ANALYZER) 0.44 UIU/ML (0.35-4.94)
== END 2021-09-23 18:10 | disposition home or self-care (01) ==
LOC: EDUNIT# 14:59 → ER 15:00
DX: G47.00 Insomnia, unspecified (principal); F41.1 Generalized anxiety disorder; F32.9 Major depressive disorder, single episode, unspecified; Z87.891 Personal history of nicotine dependence; Z79.899 Other long term (current) drug therapy
CPT/HCPCS: 36415; 80053; 84443; 85025; 99281

== ENCOUNTER 2021-11-09 10:24 | Emergency (ER) | payer OTHER ==
[~2021-11-09] VITALS: Ht 167 cm; Wt 68.0 kg
--- NOTE | 2021-11-09 11:06 | ED Upper Extremity ---
General Chief Complaint: Upper Extremity Stated Complaint: DEPRESSION,ANXIETY,R ARM PAIN Source: patient Exam Limitations: no limitations History of Present Illness Date Seen by Provider: Nov 09, 2021 Time Seen by Provider: 10:57 Initial Comments This is a pleasantly confused 76-year-old male who presented to the ER via POV with concerns increased confusion, anxiety, depression, right arm pain. He is a poor historian however does recall that he fell "sometime ago" and has been having increasing right arm pain, headache in his bilateral temples and across his forehead, unable to state how long the pain has been present. He is a patient of the [facility] and states that he had a doctor's appointment today for medication changes. He was recently tried on Xanax but states he does not feel safe taking this. States that his confusion is increasing and he does not feel that he can take care of himself or states at home by himself. Describes pain in shoulder as a "warm sensation" and he is having difficulty using his arm for ADL's. He live alone with his son but he is unsure if his son is home or when the last time he talked with him. Allergies and Home Medications Allergies Coded Allergies: No Known Drug Allergies (Verified Allergy, Unknown, 12/17/07) Patient Home Medication List Home Medication List Reviewed: Yes Finasteride (Finasteride) 1 Mg Tablet, 5 MG PO DAILY, (Reported) Entered as Reported by: LUISA RAMON on 12/24/122200 Fluoxetine Hcl (Prozac) 20 Mg Capsule, 1 EACH PO DAILY, (Reported) Entered as Reported by: LUISA RAMON on 12/24/122200 Meloxicam (Meloxicam) 15 Mg Tablet, 15 MG PO, (Reported) Entered as Reported by: ALEC MCKEON on 09/14/19 1246 Tamsulosin HCl (Flomax) 0.4 Mg Cap, 0.4 MG PO, (Reported) Entered as Reported by: ALEC MCKEON on 09/14/19 124 Review of Systems Constitutional: see HPI EENTM: no symptoms reported Past Mycvpuj-Sslipq-Zkhzgm Hx Seasonal Allergies Seasonal Allergies: No Past Medical History Surgeries: No Respiratory: No Cardiac: No Neurological: No Genitourinary: No Benign Prostatic Hyperpl Gastrointestinal: No Musculoskeletal: No Back Injury, Chronic Back Pain Endocrine: No HEENT: No Cancer: No Psychosocial: Yes Anxiety Integumentary: No Blood Disorders: No Physical Exam Vital Signs Vital Signs - First Documented 11/09/21 10:30 Temp 36.4 Pulse 86 Resp 20 B/P (MAP) 152/101 (118) Pulse Ox 100 Capillary Refill : Height, Weight, BMI Height: '" Weight: 153lbs. oz. 69.544919yf; 26.00 BMI Method: General Appearance: WD/WN, no apparent distress HEENT: PERRL/EOMI, normal ENT inspection, TMs normal, pharynx normal Neck: full range of motion, supple, normal inspection Cardiovascular: regular rate, rhythm, no murmur Respiratory: lungs clear, normal breath sounds, no respiratory distress, no accessory muscle use Gastrointestinal: normal bowel sounds, non tender, soft Back: normal inspection, no vertebral tenderness Shoulder: normal inspection, bone tenderness, limited ROM (right shoulder ) Elbow/Forearm: normal inspection, non-tender, no evidence of injury Wrist: Yes normal inspection, Yes non-tender, Yes no evidence of injury, Yes normal ROM Hand: normal inspection, non-tender, no evidence of injury, normal ROM Neurologic/Tendon: normal sensation, normal motor functions, normal tendon functions, responds to pain 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, no motor/sensory deficits, alert, normal mood/affect, oriented x 3 Skin: normal color, warm/dry Progress/Results/Core Measures Results/Orders Lab Results Laboratory Tests Test 11/09/21 11:50 11/09/21 12:18 Range/Units White Blood Count 8.1 4.3-11.0 10^3/uL Red Blood Count 4.59 4.30-5.52 10^6/uL Hemoglobin 14.2 13.3-17.7 g/dL Hematocrit 42 40-54 % Mean Corpuscular Volume 92 80-99 fL Mean Corpuscular Hemoglobin 31 25-34 pg Mean Corpuscular Hemoglobin Concent 34 32-36 g/dL Red Cell Distribution Width 12.9 10.0-14.5 % Platelet Count 227 130-400 10^3/uL Mean Platelet Volume 11.1 9.0-12.2 fL Immature Granulocyte % (Auto) 0 % Neutrophils (%) (Auto) 81 H 42-75 % Lymphocytes (%) (Auto) 12 12-44 % Monocytes (%) (Auto) 6 0-12 % Eosinophils (%) (Auto) 0 0-10 % Basophils (%) (Auto) 0 0-10 % Neutrophils # (Auto) 6.6 1.8-7.8 10^3/uL Lymphocytes # (Auto) 1.0 1.0-4.0 10^3/uL Monocytes # (Auto) 0.5 0.0-1.0 10^3/uL Eosinophils # (Auto) 0.0 0.0-0.3 10^3/uL Basophils # (Auto) 0.0 0.0-0.1 10^3/uL Immature Granulocyte # (Auto) 0.0 0.0-0.1 10^3/uL Sodium Level 139 135-145 MMOL/L Potassium Level 4.1 3.6-5.0 MMOL/L Chloride Level 104 98-107 MMOL/L Carbon Dioxide Level 21 21-32 MMOL/L Anion Gap 14 5-14 MMOL/L Blood Urea Nitrogen 20 H 7-18 MG/DL Creatinine 1.02 0.60-1.30 MG/DL Estimat Glomerular Filtration Rate 76 BUN/Creatinine Ratio 20 Glucose Level 111 H 70-105 MG/DL Calcium Level 10.0 8.5-10.1 MG/DL Corrected Calcium 8.5-10.1 MG/DL Total Bilirubin 0.8 0.1-1.0 MG/DL Aspartate Amino Transf (AST/SGOT) 16 5-34 U/L Alanine Aminotransferase (ALT/SGPT) 25 0-55 U/L Alkaline Phosphatase 63 40-136 U/L Total Protein 7.6 6.4-8.2 GM/DL Albumin 4.7 H 3.2-4.5 GM/DL Thyroid Stimulating Hormone (TSH) 0.33 L 0.35-4.94 UIU/ML Serum Alcohol < 10 <10 MG/DL Influenza Type A (RT-PCR) Not Detected Not Detecte Influenza Type B (RT-PCR) Not Detected Not Detecte SARS-CoV-2 RNA (RT-PCR) Not Detected Not Detecte Urine Color YELLOW Urine Clarity CLEAR Urine pH 6.0 5-9 Urine Specific [place] 1.020 1.016-1.022 Urine Protein NEGATIVE NEGATIVE Urine Glucose (UA) NEGATIVE NEGATIVE Urine Ketones NEGATIVE NEGATIVE Urine Nitrite NEGATIVE NEGATIVE Urine Bilirubin NEGATIVE NEGATIVE Urine Urobilinogen 0.2 < = 1.0 MG/DL Urine Leukocyte Esterase NEGATIVE NEGATIVE Urine RBC (Auto) NEGATIVE NEGATIVE Urine RBC NONE /HPF Urine WBC 0-2 /HPF Urine Squamous Epithelial Cells 0-2 /HPF Urine Crystals NONE /LPF Urine Bacteria NEGATIVE /HPF Urine Casts NONE /LPF Urine Mucus NEGATIVE /LPF Urine Culture Indicated NO Urine Opiates Screen NEGATIVE NEGATIVE Urine Oxycodone Screen NEGATIVE NEGATIVE Urine Methadone Screen NEGATIVE NEGATIVE Urine Propoxyphene Screen NEGATIVE NEGATIVE Urine Barbiturates Screen NEGATIVE NEGATIVE Ur Tricyclic Antidepressants Screen NEGATIVE NEGATIVE Urine Phencyclidine Screen NEGATIVE NEGATIVE Urine Amphetamines Screen NEGATIVE NEGATIVE Urine Methamphetamines Screen NEGATIVE NEGATIVE Urine Benzodiazepines Screen POSITIVE H NEGATIVE Urine Cocaine Screen NEGATIVE NEGATIVE Urine Cannabinoids Screen NEGATIVE NEGATIVE My Orders Orders - GRISELDA MARQUEZ APRN Cbc With Automated Diff (11/09/21 11:01) Comprehensive Metabolic Panel (11/09/21 11:01) Ekg Tracing (11/09/21 11:01) Thyroid Stimulating Hormone (11/09/21 11:01) Ua Culture If Indicated (11/09/21 11:01) Drug Screen Stat (Urine) (11/09/21 11:01) Alcohol (11/09/21 11:01) Ct Head/Cervical Spine Wo (11/09/21 11:01) Shoulder, Right, 3 Views (11/09/21 11:01) Hemoglobin A1c (11/09/21 11:01) Covid 19 Inhouse Test (11/09/21 11:07) Influenza A And B By Pcr (11/09/21 11:07) General/Regular (11/09/21 Lunch) Vital Signs/I&O 11/09/21 11/09/21 10:30 15:32 Temp 36.4 36.4 Pulse 86 80 Resp 20 18 B/P (MAP) 152/101 (118) 147/90 Pulse Ox 100 100 Progress Progress Note : Progress Note Patient examined and in no acute distress. He does have some obvious cognitive decline which per son appears to be worsening. He is [facility] however the patient does not feel that he is getting anywhere with his current management. We will go ahead and i nitiate work-up for medical clearance if patient is amicable we will try [facility] as he appears to be a good fit for this facility. Labs reviewed and are relatively unremarkable. He does have a grade 2 AC joint separation in his right shoulder. Discussed with patient the option of inpatient management at [facility], he is agreeable to have screening for possible transfer and admit. 1500: Radha Abbott completed screening at this time and accepted admission. Will admit to Dr. Heather Crane and consult Dr. Mai for medical management. Initial ECG Impression Date: Nov 09, 2021 Initial ECG Impression Time: 11:53 Initial ECG Rate: 72 Initial ECG Rhythm: Normal Sinus Initial ECG Intervals: Normal Initial ECG Impression: Normal, Nonspecific Changes Initial ECG Comparisson: No Previous ECG Available Diagnostic Imaging Diagonstic Imaging: CT Comments [facility] [place], [place] NAME: ADALBERTO ALAS [facility] REC#: [id number] PT STATUS: REG ER : 1945 PHYSICIAN: GRISELDA MARQUEZ APRN ADMIT DATE: 11/09/21/ER Draft Date of Exam:11/09/21 CT HEAD/CERVICAL SPINE WO CLINICAL INDICATION: Patient is status post fall with increased confusion. EXAM: Head CT without IV contrast with sagittal and coronal reformations. Axial CT scan of the cervical spine with sagittal and coronal reformations. Auto Exposure Controls were utilized during the CT exam to meet ALARA standards for radiation dose reduction. COMPARISON: None. FINDINGS: Head CT: There is no evidence of acute cerebral infarct, intracranial hemorrhage, or gross mass effect. The brain parenchymal volume appears appropriate for patient's age. There is normal mitchell-white matter distinction. There is no significant midline shift or herniation. There is no evidence of hydrocephalus. The basal cisterns are unremarkable. The skull, extracranial soft tissue, and orbits are unremarkable. There is mild mucosal thickening involving the right maxillary sinus and minimal amount involving the ethmoid sinus. Temporal bones show no significant abnormality. Cervical spine: There is no acute cervical spine fracture. There is grade 1 anterolisthesis of C2 on C3 and C7 on T1. There are hypertrophic spurs involving the cervical spine and facet arthropathy. There are hypertrophic spurs involving the atlanto-odontoid interval anteriorly. There is no significant neck soft tissue abnormality. Visualized upper lung hull are clear. IMPRESSION: 1: There is no evidence of acute intracranial process. There is no intracranial hemorrhage or skull fracture. 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 There is degenerative anterolisthesis of C2 on C3 and C7 on T1. Dictated on workstation # [id number] Dict: 11/09/21 1140 Trans: 11/09/21 1151 [id number] Interpreted by: ALICIA JOLLEY MD Electronically signed by: Edwin [facility] [place] [place] NAME: ADALBERTO ALAS [facility] REC#: [id number] PT STATUS: REG ER : 1945 PHYSICIAN: GRISELDA MARQUEZ STACK YIELD ENGINEER ADMIT DATE: 11/09/21/ER Signed Date of Exam:11/09/21 SHOULDER, RIGHT, 3 VIEWS HISTORY: Fall, right shoulder pain. TECHNIQUE: 3 views of the right shoulder. COMPARISON: None FINDINGS: No acute fracture seen in the right shoulder. There is mild degenerative change in the glenohumeral joint and moderate at the acromioclavicular joint. There does appear to be offset at the acromioclavicular joint with mild superior displacement of the clavicle relative to the acromion. There are cystlike changes at the humeral head, likely degenerative. IMPRESSION: 1. Likely type II injury of the right acromioclavicular joint. No acute fracture seen in the right shoulder. Dictated by: Dictated on workstation # [id number] Dict: 11/09/21 1148 Trans: 11/09/21 1155 [id number] Interpreted by: MATTHIAS BRENNER MD Electronically signed by: MATTHIAS BRENNER MD 11/09/21 1155 Departure Impression Primary Impression: Cognitive decline Additional Impressions: Anxiety Depression Acromioclavicular joint separation, type 2 Disposition: XF [facility] Condition: Stable Departure-Patient Inst. Referrals: NO,LOCAL PHYSICIAN (PCP/Family) Primary Care Physician GRISELDA MARQUEZ STACK YIELD ENGINEER Nov 09, 2021 11:06
--- NOTE | 2021-11-09 11:52 | Diagnostic Imaging Report ---
CLINICAL INDICATION: Patient is status post fall with increased confusion. EXAM: Head CT without IV contrast with sagittal and coronal reformations. Axial CT scan of the cervical spine with sagittal and coronal reformations. Auto Exposure Controls were utilized during the CT exam to meet ALARA standards for radiation dose reduction. COMPARISON: None. FINDINGS: Head CT: There is no evidence of acute cerebral infarct, intracranial hemorrhage, or gross mass effect. The brain parenchymal volume appears appropriate for patient's age. There is normal mitchell-white matter distinction. There is no significant midline shift or herniation. There is no evidence of hydrocephalus. The basal cisterns are unremarkable. The skull, extracranial soft tissue, and orbits are unremarkable. There is mild mucosal thickening involving the right maxillary sinus and minimal amount involving the ethmoid sinus. Temporal bones show no significant abnormality. Cervical spine: There is no acute cervical spine fracture. There is grade 1 anterolisthesis of C2 on C3 and C7 on T1. There are hypertrophic spurs involving the cervical spine and facet arthropathy. There are hypertrophic spurs involving the atlanto-odontoid interval anteriorly. There is no significant neck soft tissue abnormality. Visualized upper lung hull are clear. IMPRESSION: 1: There is no evidence of acute intracranial process. There is no intracranial hemorrhage or skull fracture. 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 There is degenerative anterolisthesis of C2 on C3 and C7 on T1. Dictated by: Dictated on workstation # [id number]
--- NOTE | 2021-11-09 11:52 | Diagnostic Imaging Report ---
HISTORY: Fall, right shoulder pain. TECHNIQUE: 3 views of the right shoulder. COMPARISON: None FINDINGS: No acute fracture seen in the right shoulder. There is mild degenerative change in the glenohumeral joint and moderate at the acromioclavicular joint. There does appear to be offset at the acromioclavicular joint with mild superior displacement of the clavicle relative to the acromion. There are cystlike changes at the humeral head, likely degenerative. IMPRESSION: 1. Likely type II injury of the right acromioclavicular joint. No acute fracture seen in the right shoulder. Dictated by: Dictated on workstation # [id number]
[2021-11-09 12:00] LABS: BASOPHILS % (AUTO) 0 % (0-10); EOSINOPHILS % (AUTO) 0 % (0-10); HEMATOCRIT 42 % (40-54); HEMOGLOBIN 14.2 g/dL (13.3-17.7); LYMPHOCYTES % (AUTO) 12 % (12-44); MEAN CORPUSCULAR HEMOGLOBIN 31 pg (25-34); MEAN CORPUSCULAR HGB CONC 34 g/dL (32-36); MEAN CORPUSCULAR VOLUME 92 fL (80-99); MEAN PLATELET VOLUME 11.1 fL (9.0-12.2); MONOCYTES # (AUTO) 0.5 10^3/uL (0.0-1.0); MONOCYTES % (AUTO) 6 % (0-12); NEUTROPHILS # (AUTO) 6.6 10^3/uL (1.8-7.8); NEUTROPHILS % (AUTO) 81 % (42-75); PLATELET COUNT 227 10^3/uL (130-400); WHITE BLOOD COUNT 8.1 10^3/uL (4.3-11.0)
[2021-11-09 12:16] LABS: ALBUMIN 4.7 GM/DL (3.2-4.5); CHLORIDE 104 MMOL/L (98-107); POTASSIUM 4.1 MMOL/L (3.6-5.0); SODIUM 139 MMOL/L (135-145)
[2021-11-09 12:18] LABS: GLUCOSE 111 MG/DL (70-105); TOTAL PROTEIN 7.6 GM/DL (6.4-8.2)
[2021-11-09 12:19] LABS: CARBON DIOXIDE 21 MMOL/L (21-32)
[2021-11-09 12:20] LABS: BILIRUBIN,TOTAL 0.8 MG/DL (0.1-1.0)
[2021-11-09 12:22] LABS: ALKALINE PHOSPHATASE 63 U/L (40-136); CREATININE SERUM 1.02 MG/DL (0.60-1.30); GFR ESTIMATED 76
[2021-11-09 12:23] LABS: BUN/CREATININE RATIO 20
[2021-11-09 12:25] LABS: ALANINE AMINOTRANSFERASE 25 U/L (0-55)
[2021-11-09 12:32] LABS: BILIRUBIN,URINE NEGATIVE (NEGATIVE); CLARITY,URINE CLEAR; COLOR,URINE YELLOW; GLUCOSE, URINE (UA) NEGATIVE (NEGATIVE); KETONES,URINE NEGATIVE (NEGATIVE); LEUKOCYTE ESTERASE ,URINE NEGATIVE (NEGATIVE); NITRITE,URINE NEGATIVE (NEGATIVE); PROTEIN,URINE NEGATIVE (NEGATIVE)
[2021-11-09 12:38] LABS: BACTERIA,URINE NEGATIVE /HPF; SQUAMOUS EPITHELIAL CELL,UR 0-2 /HPF; WBC,URINE 0-2 /HPF
[2021-11-09 12:46] LABS: AMPHETAMINE SCREEN, URINE NEGATIVE (NEGATIVE); BARBITURATE SCREEN URINE NEGATIVE (NEGATIVE); BENZODIAZEPINES SCREEN URINE POSITIVE (NEGATIVE); CANNABINOID SCREEN, URINE NEGATIVE (NEGATIVE); COCAINE SCREEN URINE NEGATIVE (NEGATIVE); METHADONE STAT NEGATIVE (NEGATIVE); OPIATE SCREEN URINE NEGATIVE (NEGATIVE); OXYCODONE STAT NEGATIVE (NEGATIVE); PROPOXYPHENE STAT NEGATIVE (NEGATIVE); TRICYCLIC ANTIDEPRESSANTS SCRE NEGATIVE (NEGATIVE)
[2021-11-09 15:32] VITALS: BP 147/90
== END 2021-11-09 16:24 | disposition short-term general hospital (02) ==
LOC: EDUNIT# 10:24 → ER 10:26
DX: S43.101A Unspecified dislocation of right acromioclavicular joint, initial encounter (principal); F41.9 Anxiety disorder, unspecified; F32.A Depression, unspecified; R41.81 Age-related cognitive decline; Z20.822 Contact with and (suspected) exposure to COVID-19; Z28.310 Unvaccinated for COVID-19; W19.XXXA Unspecified fall, initial encounter
CPT/HCPCS: 36415; 70450; 72125; 73030; 80053; 80306; 80320; 81000; 83036; 84443; 85025; 87636; 93005